=== PATIENT | female | born 1970 | race Caucasian/White ===

== ENCOUNTER 2016-10-09 08:05 | Emergency (ER) | payer MEDICAID ==
[2016-10-09] MEDS ORDERED: ONDANSETRON HCL INJ/PF 4 MG/2 ML SDV IV ONE ×3 (09:44→13:20)
--- NOTE | 2016-10-09 09:44 | ER Document Report ---
ED General - General Chief Complaint: Nausea/Vomiting Stated Complaint: VOMITING Mode of Arrival: Ambulatory Notes: Patient presents to the emergency department with complaints of vomiting for week can't keep water down pain in abdomen. Patient gives history of nausea for the past 6 months. She reports she's lost over 80 pounds in one year. Patient also reports she recently had a hysterectomy on August 31. Patient has been evaluated by her FRONT DESK ADMIN twice since that time. She reports she still having a little brown vaginal discharge. Patient reports she's had left lower quadrant abdominal pain on and off for months. She reports history of diverticulitis. Patient reports that she is constantly fighting nausea and vomiting. She is able to keep water down without problems so. For the past week she's been vomiting water up. She reports she tried to eat some toast yesterday was able to keep down but when she drinks a beer after reports she threw it all up. Patient is a diabetic. She reports she hasn't been taking her insulin because she hasn't been able to keep fluids down. She last took 18 units of NovoLog yesterday. TRAVEL OUTSIDE OF THE [place] IN LAST 30 DAYS: No - HPI Onset: Other Onset/Duration: Constant, Persistent Quality of pain: Achy Severity: Severe Pain Level: 4 Associated symptoms: Nausea, Vomiting Exacerbated by: Denies Relieved by: Denies Similar symptoms previously: Yes Recently seen / treated by doctor: Yes - Related Data Allergies/Adverse Reactions: Sulfa (Sulfonamide Antibiotics) Allergy (Intermediate, Verified 11/10/15 10:55) Anaphylaxis mushrooms Allergy (Mild, Uncoded 11/10/15 10:55) Hives Past Medical History - General Information source: Patient Last Menstrual Period: hysterectomy - Social History Smoking Status: Current Every Day Smoker Cigarette use (# per day): Yes Frequency of alcohol use: Rare Drug Abuse: None Lives with: Family Family History: Reviewed & Not Pertinent, DM Patient has suicidal ideation: No Patient has homicidal ideation: No - Past Medical History Cardiac Medical History: Reports: Hx Hypercholesterolemia, Hx Hypertension Pulmonary Medical History: Reports: Hx Bronchitis, Hx Pneumonia Endocrine Medical History: Reports: Hx Diabetes Mellitus Type 2 Renal/ Medical History: Reports: Hx Ectopic , Hx Ovarian Cysts. Denies: Hx Peritoneal Dialysis GI Medical History: Reports: Hx Gastritis, Hx Irritable Bowel Past Surgical History: Reports: Hx Adenoidectomy, Hx Myringotomy, Hx Tonsillectomy, Hx Tubal Ligation - Immunizations Immunizations up to date: Yes Hx Diphtheria, Pertussis, Tetanus Vaccination: Yes Hx Pneumococcal Vaccination: 09/18/00 Review of Systems - Review of Systems Notes: Review HPI for review of systems., All other systems negative Physical Exam - Vital signs Vitals: Temp Pulse Resp BP Pulse Ox 97.7 F 128 H 18 114/86 H 99 10/09/16 08:10 10/09/16 08:10 10/09/16 08:10 10/09/16 08:10 10/09/16 08:10 - Notes Notes: PHYSICAL EXAMINATION: GENERAL: Well-appearing and in no acute distress laughs easily HEAD: Atraumatic, normocephalic. EYES: Pupils equal round extraocular movements intact, sclera anicteric, conjunctiva are normal. ENT: nares patent, oropharynx clear without exudates. Moist mucous membranes. NECK: Normal range of motion, supple without lymphadenopathy LUNGS: CTAB and equal. No wheezes rales or rhonchi. HEART: Regular rate and rhythm without murmurs ABDOMEN: Soft, LLQ tenderness. No guarding, no rebound BACK: Denies pain EXTREMITIES: Normal range of motion, no pitting edema. NEUROLOGICAL: Cranial nerves grossly intact. Normal sensory/motor PSYCH: Normal mood, normal affect. SKIN: Warm, Dry, normal turgor, no rashes or lesions noted Course - Re-evaluation Re-evalutation: 10/09/16 11:30 I have consulted the attending provider, Dr Reid, per [facility] guidelines, advised 2 view abdomen 10/09/16 14:23 Patient eating crackers drinking by mouth fluids reports abdominal pain gone. Discussed UTI with patient. Patient reports she's on Cipro and started taking it 2 days ago ordered by her FRONT DESK ADMIN because she was having symptoms at that time. pt reports she will take her insulin when she arrives home as scheduled - Vital Signs Vital signs: Temp Pulse Resp BP Pulse Ox 97.6 F 122 H 16 110/80 98 10/09/16 16:05 10/09/16 16:05 10/09/16 16:05 10/09/16 16:05 10/09/16 16:05 - Laboratory Result Diagrams: 10/09/16 09:23 10/09/16 09:23 Laboratory results interpreted by me: 10/09/16 10/09/16 10/09/16 09:23 09:23 09:55 WBC 12.7 H RBC 5.30 H Hct 48.5 H MCHC 31.5 L Absolute Neutrophils 9.6 H Chloride 94 L Anion Gap 20 H Creatinine 0.48 L Glucose 403 H* POC Glucose Calcium 10.6 H Urine Glucose (UA) >=500 H Urine Ketones 80 H Urine Blood MODERATE H Ur Leukocyte Esterase LARGE H 10/09/16 10/09/16 10/09/16 12:00 13:10 15:31 WBC RBC Hct MCHC Absolute Neutrophils Chloride Anion Gap Creatinine Glucose POC Glucose 324 H 341 H 292 H Calcium Urine Glucose (UA) Urine Ketones Urine Blood Ur Leukocyte Esterase - Diagnostic Test Radiology reviewed: Image reviewed, Reports reviewed - IMPRESSION: NO RADIOGRAPHIC EVIDENCE FOR ACUTE ABDOMINAL DISEASE. Discharge - Discharge Clinical Impression: Abdominal pain, Hyperglycemia Nausea and vomiting Qualifiers: Vomiting type: unspecified Vomiting Intractability: non-intractable Qualified Code(s): R11.2 - Nausea with vomiting, unspecified Urinary tract infection Qualifiers: Urinary tract infection type: site unspecified Hematuria presence: with hematuria Qualified Code(s): N39.0 - Urinary tract infection, site not specified Condition: Stable Disposition: HOME, SELF-CARE Instructions: Abdominal Pain ([facility]), Urinary Tract Infection ([facility]), Vomiting ( [facility]), Antinausea Medication ([facility]), Ciprofloxacin ([facility]) Additional Instructions: *You have been evaluated for abdominal pain, nausea/vomiting, UTI *Monitor your blood pressure. Your blood pressure was elevated today. This may be because you were anxious, in pain or because you need medication. It is important to follow up with your primary care provider for full evaluation. *Take medication as prescribed- continue to take your cipro *Ensure adequate fluid intake as discussed to prevent dehydration *Follow up with a primary care provider within 5 days for recheck *Return to ED for worsening condition, changes, needs Forms: Elevated Blood Pressure Referrals: BONNY LEARY PA-C [Primary Care Provider] - Follow up as needed
[2016-10-09 10:02] LABS: ABSOLUTE BASOPHILS # (AUTO) 0.1 10^3/uL (0.0-0.2); ABSOLUTE EOSINOPHILS # (AUTO) 0.1 10^3/uL (0.0-0.6); ABSOLUTE LYMPHOCYTES (AUTO) 2.2 10^3/uL (0.5-4.7); ABSOLUTE MONOCYTES (AUTO) 0.7 10^3/uL (0.1-1.4); ABSOLUTE NEUT (AUTO) 9.6 10^3/uL (1.7-8.2); BASOPHILS % (AUTO) 0.8 % (0-2); EOSINOPHILS % (AUTO) 0.8 % (0-6); HEMATOCRIT 48.5 % (36.0-47.0); HEMOGLOBIN 15.3 g/dL (12.0-15.5); HGB HCT DIFFERENCE -2.6; LYMPHOCYTES % (AUTO) 17.5 % (13-45); MEAN CORPUSCULAR HEMOGLOBIN 28.9 pg (27.0-33.4); MEAN CORPUSCULAR HGB CONC 31.5 g/dL (32.0-36.0); MEAN CORPUSCULAR VOLUME 92 fl (80-97); MONOCYTES % (AUTO) 5.6 % (3-13); RED CELL DISTRIBUTION WIDTH 13.8 % (11.5-14.0); SEGMENTED NEUTROPHILS % (AUTO) 75.3 % (42-78); WHITE BLOOD COUNT 12.7 10^3/uL (4.0-10.5)
[2016-10-09 10:07] LABS: ALANINE AMINOTRANSFERASE 13 U/L (9-52); ALBUMIN 4.4 g/dL (3.5-5.0); ALKALINE PHOSPHATASE 93 U/L (38-126); ASPARTATE AMINO TRANSFERASE 14 U/L (14-36); BILIRUBIN,TOTAL 0.8 mg/dL (0.2-1.3); BLOOD UREA NITROGEN 15 mg/dL (7-20); CALCIUM 10.6 mg/dL (8.4-10.2); CREATININE RESULT 0.48 mg/dL (0.52-1.25); LIPASE 42.5 U/L (23-300); POTASSIUM 4.9 mmol/L (3.6-5.0); TOTAL PROTEIN 7.9 g/dL (6.3-8.2)
[2016-10-09 10:15] LABS: CARBON DIOXIDE 25 mmol/L (22-30); CHLORIDE 94 mmol/L (98-107); SODIUM 138.7 mmol/L (137-145)
[2016-10-09 10:20] LABS: ANION GAP 20 (5-19); GLUCOSE 403 mg/dL (75-110)
[2016-10-09 10:31] LABS: APPEARANCE,URINE SLIGHTLY-CLOUDY; BILIRUBIN,URINE NEGATIVE (NEGATIVE); GLUCOSE, URINE >=500 mg/dL (NEGATIVE); KETONES,URINE 80 mg/dL (NEGATIVE); LEUKOCYTE ESTERASE,URINE LARGE (NEGATIVE); NITRITE,URINE NEGATIVE (NEGATIVE); PROTEIN,URINE NEGATIVE (NEGATIVE); URINE SPECIFIC GRAVITY 1.031; UROBILINOGEN,URINE NEGATIVE mg/dL (<2.0)
[2016-10-09] MEDS ORDERED: NORMAL SALINE 1000 ML 1,000 ML IV ONE ×2 (10:35→11:42)
[2016-10-09] MEDS ORDERED: OXYCODONE-ACETAMINOPHEN 5-325 MG TABLET PO ONE (13:20)
[2016-10-09] MEDS ORDERED: INSULIN REG, HUMAN 100 UNIT/ML 3 ML VIAL (PYX) SUBCUT ONE (14:22)
[2016-10-09] MEDS ORDERED: METOCLOPRAMIDE HCL INJ/PF 10 MG/2 ML SDV IV ONE (15:02)
[2016-10-09] MEDS ORDERED: ONDANSETRON ODT 4 MG TAB (6 TAB/DSPK) PO PRN (15:41)
[2016-10-09] MEDS ORDERED: HYDROCODONE/ACETAMINOPHEN 5-325 MG 6 TAB/DSPK PO PRN (15:41)
[2016-10-09 16:12] VITALS: BP 110/80
== END 2016-10-09 16:05 | disposition home or self-care (01) ==
LOC: ER 08:05
DX: N39.0 Urinary tract infection, site not specified (principal); R31.9 Hematuria, unspecified; R11.2 Nausea with vomiting, unspecified; R10.32 Left lower quadrant pain; E11.65 Type 2 diabetes mellitus with hyperglycemia; Z91.14 Patient's other noncompliance with medication regimen; I10 Essential (primary) hypertension; R63.4 Abnormal weight loss; Z68.23 Body mass index [BMI] 23.0-23.9, adult; F17.210 Nicotine dependence, cigarettes, uncomplicated; Z98.890 Other specified postprocedural states; Z90.710 Acquired absence of both cervix and uterus; Z87.19 Personal history of other diseases of the digestive system; Z87.892 Personal history of anaphylaxis; Z88.2 Allergy status to sulfonamides; Z91.018 Allergy to other foods; Z87.42 Personal history of other diseases of the female genital tract; Z87.59 Personal history of other complications of pregnancy, childbirth and the puerperium
CPT/HCPCS: 96376; 99284; 96361; 96374; 96375; 36415; 87086; 82962; 83690; 84703; 85025; 87088; 80053; 81001; 74020; J2765; J1815; J2405; J7030; 87186

== ENCOUNTER 2016-10-10 23:41 | Emergency (ER) | payer MEDICAID ==
[2016-10-11] MEDS ORDERED: NORMAL SALINE 1000 ML 1,000 ML IV ONE ×2 (02:58)
--- NOTE | 2016-10-11 03:01 | ER Document Report ---
ED GI/ - General Chief Complaint: Vomiting Stated Complaint: POSSIBLE ALLERGIC REACTION Time seen by provider: 02:55 Notes: Patient is a 45-year-old female that comes emergency department for chief complaint of vomiting. Patient states that she took estrogen pill this morning and a few hours later began uncontrolled vomiting. She states that she did the same yesterday but was hoping that it was not the pill because she has had difficulty with vomiting for 6 months now. She has a gastroenterology follow- up pending. Patient was placed on estrogen starting Monday by JEWELRY RACKER status post hysterectomy. Patient has insulin-dependent diabetes, she did take insulin this morning when she ate crackers. TRAVEL OUTSIDE OF THE [place] IN LAST 30 DAYS: No - Related Data Allergies/Adverse Reactions: Sulfa (Sulfonamide Antibiotics) Allergy (Intermediate, Verified 11/10/15 10:55) Anaphylaxis mushrooms Allergy (Mild, Uncoded 11/10/15 10:55) Hives Past Medical History - General Information source: Patient - Social History Smoking Status: Never Smoker Frequency of alcohol use: None Drug Abuse: None Lives with: Family Family History: Reviewed & Not Pertinent, DM Patient has suicidal ideation: No Patient has homicidal ideation: No - Past Medical History Cardiac Medical History: Reports: Hx Hypercholesterolemia, Hx Hypertension Pulmonary Medical History: Reports: Hx Bronchitis, Hx Pneumonia Endocrine Medical History: Reports: Hx Diabetes Mellitus Type 2 Renal/ Medical History: Reports: Hx Ectopic , Hx Ovarian Cysts. Denies: Hx Peritoneal Dialysis GI Medical History: Reports: Hx Gastritis, Hx Irritable Bowel Past Surgical History: Reports: Hx Adenoidectomy, Hx Hysterectomy, Hx Myringotomy, Hx Tonsillectomy, Hx Tubal Ligation - Immunizations Immunizations up to date: Yes Hx Diphtheria, Pertussis, Tetanus Vaccination: Yes Hx Pneumococcal Vaccination: 09/18/00 Review of Systems - Review of Systems Constitutional: No symptoms reported EENT: No symptoms reported Cardiovascular: No symptoms reported Respiratory: No symptoms reported Gastrointestinal: See HPI Genitourinary: No symptoms reported Female Genitourinary: No symptoms reported Musculoskeletal: No symptoms reported Skin: No symptoms reported Hematologic/Lymphatic: No symptoms reported Neurological/Psychological: No symptoms reported Physical Exam - Vital signs Vitals: Temp Pulse Resp BP Pulse Ox 97.8 F 118 H 20 119/82 98 10/10/16 23:43 10/10/16 23:43 10/10/16 23:43 10/10/16 23:43 10/10/16 23:43 Interpretation: Normal - General General appearance: Appears well, Alert - HEENT Head: Normocephalic, Atraumatic Eyes: Normal Conjunctiva: Normal Extraocular movements intact: Yes Eyelashes: Normal Pupils: PERRL Sinus: Normal Nasal: Normal Mouth/Lips: Normal Mucous membranes: Normal Pharynx: Normal Neck: Normal - Respiratory Respiratory status: No respiratory distress Chest status: Nontender Breath sounds: Normal Chest palpation: Normal - Cardiovascular Rhythm: Regular, Tachycardia Heart sounds: Normal auscultation, S1 appreciated, S2 appreciated Murmur: No - Abdominal Inspection: Normal Distension: No distension Bowel sounds: Normal Tenderness: Tender - Very mild generalized tenderness of the abdomen, nonspecific with no guarding. No: Guarding - Back Back: Normal, Nontender. No: Tender - Extremities General upper extremity: Normal inspection, Nontender, Normal color, Normal ROM , Normal temperature General lower extremity: Normal inspection, Nontender, Normal color, Normal ROM , Normal temperature, Normal weight bearing. No: Patricia's sign - Neurological Neuro grossly intact: Yes Cognition: Normal Orientation: AAOx4 Kathryn Coma Scale Eye Opening: Spontaneous Kathryn Coma Scale Verbal: Oriented Kathryn Coma Scale Motor: Obeys Commands Kathryn Coma Scale Total: 15 Speech: Normal Motor strength normal: LUE, RUE, LLE, RLE Sensory: Normal - Psychological Associated symptoms: Normal affect, Normal mood - Skin Skin Temperature: Warm Skin Moisture: Dry Skin Color: Normal Course - Re-evaluation Re-evalutation: Patient still mildly tachycardic after 2 L boluses, patient was given IV nausea medications and states she feels much better, tolerating fluids, patient states that her heart rate is always somewhat elevated (states it is usually in the 120s, this is consistent with a visit from yesterday). Patient is well- appearing. Glucose elevated to 60s, anion gap and bicarbonate are normal, large amount of ketones in the urine but this is consistent with patient's dehydration. Patient requesting to go home after medications. Advised to stop the estrogen until she follows up with JEWELRY RACKER and to return for any concerning or worsening symptoms. Patient and family members state satisfaction and agreement. = - Vital Signs Vital signs: Temp Pulse Resp BP Pulse Ox 98.4 F 112 H 18 140/82 H 99 01/24/17 05:33 10/11/16 05:33 10/11/16 05:33 10/11/16 05:33 10/11/16 05:33 - Laboratory Result Diagrams: 10/11/16 03:53 Laboratory results interpreted by me: 10/11/16 10/11/16 03:10 03:53 Potassium 3.5 L Creatinine 0.43 L Glucose 267 H Urine Glucose (UA) >=500 H Urine Ketones 80 H Urine Blood SMALL H Ur Leukocyte Esterase TRACE H Discharge - Discharge Clinical Impression: Nausea and vomiting, Medication side effects, Dehydration Condition: Stable Disposition: HOME, SELF-CARE Additional Instructions: Do not take the estrogen because it appears you cannot tolerate this. Follow up with JEWELRY RACKER for additional management. Take the Reglan if needed for nausea, I recommend taking diphenhydramine with this. Continue to rehydrate at home. Return to the emergency department for any concerning or worsening symptoms. Prescriptions: Metoclopramide HCl [Reglan] 5 mg PO ASDIR PRN #30 tablet PRN Reason: Referrals: BONNY LEARY PA-C [Primary Care Provider] - Follow up as needed
[2016-10-11] MEDS ORDERED: METOCLOPRAMIDE HCL INJ/PF 10 MG/2 ML SDV IV ONE ×2 (03:29→04:50)
[2016-10-11] MEDS ORDERED: DIPHENHYDRAMINE HCL 50 MG/ML VIAL IV ONE ×2 (03:30→04:50)
[2016-10-11 03:34] LABS: APPEARANCE,URINE CLEAR; BILIRUBIN,URINE NEGATIVE (NEGATIVE); GLUCOSE, URINE >=500 mg/dL (NEGATIVE); KETONES,URINE 80 mg/dL (NEGATIVE); LEUKOCYTE ESTERASE,URINE TRACE (NEGATIVE); NITRITE,URINE NEGATIVE (NEGATIVE); PROTEIN,URINE NEGATIVE (NEGATIVE); URINE SPECIFIC GRAVITY 1.022; UROBILINOGEN,URINE NEGATIVE mg/dL (<2.0)
[2016-10-11 04:36] LABS: ALANINE AMINOTRANSFERASE 23 U/L (9-52); ALBUMIN 3.5 g/dL (3.5-5.0); ALKALINE PHOSPHATASE 71 U/L (38-126); ANION GAP 15 (5-19); ASPARTATE AMINO TRANSFERASE 14 U/L (14-36); BILIRUBIN,TOTAL 0.7 mg/dL (0.2-1.3); BLOOD UREA NITROGEN 10 mg/dL (7-20); CALCIUM 8.9 mg/dL (8.4-10.2); CARBON DIOXIDE 22 mmol/L (22-30); CHLORIDE 100 mmol/L (98-107); CREATININE RESULT 0.43 mg/dL (0.52-1.25); GLUCOSE 267 mg/dL (75-110); POTASSIUM 3.5 mmol/L (3.6-5.0); TOTAL PROTEIN 6.5 g/dL (6.3-8.2)
[2016-10-11 05:39] VITALS: BP 140/82
== END 2016-10-11 05:44 | disposition home or self-care (01) ==
LOC: ER 23:41
DX: R11.2 Nausea with vomiting, unspecified (principal); T38.5X5A Adverse effect of other estrogens and progestogens, initial encounter; E86.0 Dehydration; E78.00 Pure hypercholesterolemia, unspecified; I10 Essential (primary) hypertension; E11.9 Type 2 diabetes mellitus without complications; Z90.710 Acquired absence of both cervix and uterus; Z88.2 Allergy status to sulfonamides
CPT/HCPCS: 96376; 99284; 96361; 96374; 96375; 36415; 80053; 81001; J1200; J2765; J7030

== ENCOUNTER 2016-10-20 11:57 | Day surgery (SDC) | payer MEDICAID ==
[~2016-10-20 11:57] MED LIST: DIPHENHYDRAMINE HCL 50 MG/ML VIAL ONE; EPINEPHRINE INJ 1 MG/10 ML DISP.SYRIN ONE; FLUMAZENIL INJ 0.5 MG/5 ML VIAL IV ONE; GLUCAGON,HUMAN RECOMB 1 MG INJ ONE; MIDAZOLAM 2 MG/2 ML INJ ONE; NALOXONE HCL INJ/PF 0.4 MG/1 ML SDV ONE; ONDANSETRON HCL INJ/PF 4 MG/2 ML SDV ONE; PROMETHAZINE HCL INJ 25 MG/1 ML VIAL ONE
[2016-10-20] MEDS: MIDAZOLAM 2 MG/2 ML INJ ONE ×2 (12:45→12:49)
[2016-10-20] MEDS: FENTANYL CITRATE INJ/PF 100 MCG/2 ML AMPUL ONE ×2 (12:47→12:51)
--- NOTE | 2016-10-20 12:56 | Operative Report ---
Operative Report DATE OF SURGERY: 10/20/16 Operative Report: The risks benefits and alternatives of the procedure explained to the patient in detail and informed consent is obtained that GIF Olympus video scope was inserted into the patient's mouth and hypopharynx the esophagus is identified intubated and insufflated the scope was then advanced through the esophagus stomach and duodenum retroflexion maneuver is done the esophagus stomach and first and second portions of the duodenum examined PREOPERATIVE DIAGNOSIS: Epigastric pain POSTOPERATIVE DIAGNOSIS: Gastritis, duodenitis OPERATION: EGD with biopsy SURGEON: SERAFIN MORGAN ANESTHESIA: Moderate Sedation - 4 mg of Versed, 100 g of fentanyl. TISSUE REMOVED OR ALTERED: Gastritis specimens obtained rule out Helicobacter pylori COMPLICATIONS: None. ESTIMATED BLOOD LOSS: none. INTRAOPERATIVE FINDINGS: Gastritis and duodenitis, esophagus is normal PROCEDURE: Patient tolerated the procedure well. No immediate postprocedure complications are noted. Patient is discharged in good condition. Discharge date 11-04. Discharge diet: Regular. Discharge activity: Regular. 2-3 follow-up to discuss findings. We'll await on pathology results Patient is instructed to call the office or proceed to the emergency room after any further problems or questions
[2016-10-20 14:10] VITALS: BP 128/83
== END 2016-10-20 14:05 | disposition home or self-care (01) ==
LOC: END 11:57
PROVIDERS: ATTEND Internal Medicine Gastroenterology
PROC: 0DB68ZX Excision of Stomach, Via Natural or Artificial Opening Endoscopic, Diagnostic (ICD-10-PCS; principal; 2016-10-20 12:30)
DX: K29.80 Duodenitis without bleeding (principal); K29.50 Unspecified chronic gastritis without bleeding; E11.9 Type 2 diabetes mellitus without complications; E78.5 Hyperlipidemia, unspecified; I10 Essential (primary) hypertension; Z79.4 Long term (current) use of insulin; Z79.899 Other long term (current) drug therapy; Z88.2 Allergy status to sulfonamides; Z88.8 Allergy status to other drugs, medicaments and biological substances
CPT/HCPCS: 43239; 82962; 88305 ×2; J2250; J3010; J0171; J1200; J1610; J2310; J2405; J2550; J3490

== ENCOUNTER → 2016-10-21 | Outpatient (CLI) | payer MEDICAID | LOC: RAD 10:45 | PROVIDERS: ATTEND Physician Assistant | DX: R10.12 Left upper quadrant pain (principal) | CPT/HCPCS: 76700; 93976 ==

== ENCOUNTER 2016-10-24 22:13 | Emergency (ER) | payer MEDICAID ==
--- NOTE | 2016-10-24 22:19 | ER Document Report ---
ED GI/ - General Mode of Arrival: Medic Information source: Patient TRAVEL OUTSIDE OF THE [place] IN LAST 30 DAYS: No - HPI Patient complains to provider of: Abdominal pain Onset: This morning Timing/Duration: Sudden, Persistent Quality of pain: Stabbing Severity at maximum: Severe Severity in ED: Severe Associated symptoms: Nausea, Vomiting. denies: Diarrhea Similar symptoms previously: Yes Recently seen / treated by doctor: Yes - [facility] ED 10/20/2016 <GARIMA MCKEON - Last Filed: 10/25/16 00:35> <STACI ORELLANA - Last Filed: 10/25/16 05:23> - General Chief Complaint: Vomiting Stated Complaint: NAUSEA, VOMITING Notes: 45 y/o female presents to the emergency department chief complaint diffuse abdominal pain onset this morning, but has been intermittent over the past few months. Patient states that she has been nauseous and vomiting, but denies diarrhea. Patient describes the pain as a stabbing pain. Patient denies any exposure to anyone with illness. Patient recently was seen here for similar symptoms. She had an endoscopy revealing gastritis and duodenitis on 10/20/2016, and on 10/21/2016 patient had a negative abdominal ultrasound. (GARIMA MCKEON) - Related Data Allergies/Adverse Reactions: Sulfa (Sulfonamide Antibiotics) Allergy (Intermediate, Verified 10/20/16 12:21) Anaphylaxis mushrooms Allergy (Mild, Uncoded 10/20/16 12:21) Hives Past Medical History - General Information source: Patient, [facility] Records - Social History Smoking Status: Current Every Day Smoker Chew tobacco use (# tins/day): Yes Frequency of alcohol use: None Family History: Reviewed & Not Pertinent, DM - Past Medical History Cardiac Medical History: Reports: Hx Hypercholesterolemia, Hx Hypertension Denies: Hx Coronary Artery Disease, Hx Heart Attack Pulmonary Medical History: Reports: Hx Bronchitis, Hx Pneumonia Denies: Hx Asthma, Hx COPD Neurological Medical History: Denies: Hx Cerebrovascular Accident, Hx Seizures Endocrine Medical History: Reports: Hx Diabetes Mellitus Type 2 Renal/ Medical History: Reports: Hx Ectopic , Hx Ovarian Cysts. Denies: Hx Peritoneal Dialysis GI Medical History: Reports: Hx Gastritis, Hx Irritable Bowel, Other - Duodenitis Musculoskeltal Medical History: Denies Hx Arthritis Past Surgical History: Reports: Hx Adenoidectomy, Hx Hysterectomy, Hx Myringotomy, Hx Tonsillectomy, Hx Tubal Ligation - Immunizations Immunizations up to date: Yes Hx Diphtheria, Pertussis, Tetanus Vaccination: Yes Hx Pneumococcal Vaccination: 09/18/00 <GARIMA MCKEON - Last Filed: 10/25/16 00:35> Review of Systems - Review of Systems Constitutional: No symptoms reported EENT: No symptoms reported Cardiovascular: No symptoms reported Respiratory: No symptoms reported Gastrointestinal: See HPI, Abdominal pain, Nausea, Vomiting. denies: Diarrhea Genitourinary: No symptoms reported Female Genitourinary: No symptoms reported Musculoskeletal: No symptoms reported Skin: No symptoms reported Hematologic/Lymphatic: No symptoms reported Neurological/Psychological: No symptoms reported -: Yes All other systems reviewed and negative <GARIMA MCKEON - Last Filed: 10/25/16 00:35> Physical Exam - Vital signs Interpretation: Hypertensive, Tachycardic - General General appearance: Other - Appears uncomfortable. - HEENT Head: Normocephalic, Atraumatic Eyes: Normal Pupils: PERRL - Abdominal Tenderness: Tender - Abdomen diffusely tender to palpation, LUQ worse. - Back Back: Normal, Nontender - Extremities General upper extremity: Normal inspection, Nontender, Normal color, Normal ROM General lower extremity: Normal inspection, Nontender, Normal color, Normal ROM , Normal temperature - Neurological Neuro grossly intact: Yes Cognition: Normal Kathryn Coma Scale Eye Opening: Spontaneous Kathryn Coma Scale Verbal: Oriented Kathryn Coma Scale Motor: Obeys Commands Kathryn Coma Scale Total: 15 Speech: Normal - Psychological Associated symptoms: Normal affect, Normal mood - Skin Skin Temperature: Warm Skin Moisture: Diaphoretic Skin Color: Normal <GARIMA MCKEON - Last Filed: 10/25/16 00:35> <STACI ORELLANA - Last Filed: 10/25/16 05:23> - Vital signs Vitals: Temp Pulse BP Pulse Ox 98.3 F 97 196/89 H 97 10/24/16 23:42 10/24/16 23:42 10/24/16 23:42 10/24/16 23:42 (STACI ORELLANA) Course - Laboratory Result Diagrams: 10/24/16 23:20 10/24/16 23:20 <GARIMA MCKEON - Last Filed: 10/25/16 00:35> - Laboratory Result Diagrams: 10/24/16 23:20 10/24/16 23:20 <STACI ORELLANA - Last Filed: 10/25/16 05:23> - Re-evaluation Re-evalutation: 10/25/16 02:11 Patient with no acute findings on blood work. CT showing chronic pancreatitis. Patient is feeling better after fluids and medications. Patient is unsure she has a history of pancreatitis. She will try by mouth. She has been instructed about following a clear liquid diet. 10/25/16 05:22 Patient is able to tolerate by mouth fluids. She'll be discharged home to follow-up with her it lead. Understands agrees with plan. Stable for discharge. Return if any worsening or concerning symptoms. (STACI ORELLANA) - Vital Signs Vital signs: Temp Pulse Resp BP Pulse Ox 98.3 F 97 196/89 H 97 10/24/16 23:42 10/24/16 23:42 10/24/16 23:42 10/24/16 23:42 (STACI ORELLANA) - Laboratory Laboratory results interpreted by me: 10/24/16 10/24/16 10/25/16 23:20 23:20 01:37 WBC 13.5 H Seg Neutrophils % 82.1 H Absolute Neutrophils 11.1 H Carbon Dioxide 20 L BUN 6 L Creatinine 0.37 L Glucose 298 H Urine Glucose (UA) >=500 H Urine Ketones 20 H Urine Blood MODERATE H Ur Leukocyte Esterase SMALL H (STACI ORELLANA) Discharge <GARIMA MCKEON - Last Filed: 10/25/16 00:35> <STACI ORELLANA - Last Filed: 10/25/16 05:23> - Discharge Clinical Impression: Pancreatitis Qualifiers: Chronicity: chronic Pancreatitis type: other Qualified Code(s): K86.1 - Other chronic pancreatitis Condition: Stable Disposition: HOME, SELF-CARE Instructions: Pancreatitis ([facility]), Clear Liquid Diet ([facility]) Additional Instructions: Please follow-up with your GI doctor. Return if you have any worsening or concerning symptoms. Prescriptions: Metoclopramide HCl [Reglan 10 mg Tablet] 1 - 2 tab PO ASDIR PRN #25 tablet PRN Reason: Ondansetron [Zofran Odt 4 mg Tablet] 1 - 2 tab PO Q4H PRN #20 tab.rapdis PRN Reason: For Nausea/Vomiting Oxycodone HCl/Acetaminophen [Percocet 5-325 mg Tablet] 1 - 2 tab PO Q4H PRN #30 tablet PRN Reason: Forms: Return to Work Referrals: SOHA WATKINS MD [Primary Care Provider] - Follow up as needed Scribe Attestation: 10/25/16 05:23 I personally performed the services described in the documentation, reviewed and edited the documentation which was dictated to the scribe in my presence, and it accurately records my words and actions. (STACI ORELLANA) Scribe Documentation - Scribe Written by Scribe:: Garima Mckeon 10/24/2016 [id number] acting as scribe for :: Zenia <GARIMA MCKEON - Last Filed: 10/25/16 00:35>
[2016-10-24] MEDS ORDERED: METOCLOPRAMIDE HCL INJ/PF 10 MG/2 ML SDV IV ONE (22:27)
[2016-10-24] MEDS ORDERED: MORPHINE SULFATE 10 MG/ML INJ IV ONE (22:27)
[2016-10-24] MEDS ORDERED: PANTOPRAZOLE SODIUM 40 MG VIAL IV ONE (22:27)
[2016-10-24] MEDS ORDERED: NORMAL SALINE 1000 ML 1,000 ML IV ONE (22:54)
[2016-10-24 23:34] LABS: ABSOLUTE BASOPHILS # (AUTO) 0.1 10^3/uL (0.0-0.2); ABSOLUTE EOSINOPHILS # (AUTO) 0.1 10^3/uL (0.0-0.6); ABSOLUTE LYMPHOCYTES (AUTO) 1.8 10^3/uL (0.5-4.7); ABSOLUTE MONOCYTES (AUTO) 0.5 10^3/uL (0.1-1.4); ABSOLUTE NEUT (AUTO) 11.1 10^3/uL (1.7-8.2); BASOPHILS % (AUTO) 0.8 % (0-2); EOSINOPHILS % (AUTO) 0.4 % (0-6); HEMATOCRIT 46.5 % (36.0-47.0); HEMOGLOBIN 15.3 g/dL (12.0-15.5); HGB HCT DIFFERENCE -0.6; LYMPHOCYTES % (AUTO) 13.2 % (13-45); MEAN CORPUSCULAR HEMOGLOBIN 29.3 pg (27.0-33.4); MEAN CORPUSCULAR HGB CONC 32.9 g/dL (32.0-36.0); MEAN CORPUSCULAR VOLUME 89 fl (80-97); MONOCYTES % (AUTO) 3.5 % (3-13); RED BLOOD COUNT 5.22 10^6/uL (3.72-5.28); RED CELL DISTRIBUTION WIDTH 13.7 % (11.5-14.0); SEGMENTED NEUTROPHILS % (AUTO) 82.1 % (42-78); WHITE BLOOD COUNT 13.5 10^3/uL (4.0-10.5)
[2016-10-24] MEDS ORDERED: RINGERS SOLUTION,LACTATED 1,000 ML IV ONE (23:48)
[2016-10-25 00:01] LABS: ALANINE AMINOTRANSFERASE 24 U/L (9-52); ALBUMIN 4.4 g/dL (3.5-5.0); ALKALINE PHOSPHATASE 89 U/L (38-126); ANION GAP 18 (5-19); ASPARTATE AMINO TRANSFERASE 17 U/L (14-36); BILIRUBIN,TOTAL 0.6 mg/dL (0.2-1.3); BLOOD UREA NITROGEN 6 mg/dL (7-20); CALCIUM 9.7 mg/dL (8.4-10.2); CARBON DIOXIDE 20 mmol/L (22-30); CHLORIDE 100 mmol/L (98-107); CREATININE RESULT 0.37 mg/dL (0.52-1.25); GLUCOSE 298 mg/dL (75-110); LIPASE 50.6 U/L (23-300); POTASSIUM 4.5 mmol/L (3.6-5.0); SODIUM 138.3 mmol/L (137-145); TOTAL PROTEIN 7.5 g/dL (6.3-8.2)
[2016-10-25 00:17] VITALS: BP 196/89
[2016-10-25] MEDS ORDERED: MORPHINE SULFATE 10 MG/ML INJ IV ONE (01:25)
[2016-10-25 02:11] LABS: APPEARANCE,URINE CLEAR; BILIRUBIN,URINE NEGATIVE (NEGATIVE); GLUCOSE, URINE >=500 mg/dL (NEGATIVE); KETONES,URINE 20 mg/dL (NEGATIVE); LEUKOCYTE ESTERASE,URINE SMALL (NEGATIVE); NITRITE,URINE NEGATIVE (NEGATIVE); PROTEIN,URINE NEGATIVE (NEGATIVE); URINE SPECIFIC GRAVITY 1.021; UROBILINOGEN,URINE NEGATIVE mg/dL (<2.0)
[2016-10-25] MEDS ORDERED: HYDROCODONE/ACETAMINOPHEN 5-325 MG 6 TAB/DSPK PO PRN (04:19)
[2016-10-25] MEDS ORDERED: ONDANSETRON ODT 4 MG TAB (6 TAB/DSPK) PO PRN (04:20)
== END 2016-10-25 05:13 | disposition home or self-care (01) ==
LOC: ER 22:13
DX: K86.1 Other chronic pancreatitis (principal); R11.2 Nausea with vomiting, unspecified; R10.84 Generalized abdominal pain; R00.0 Tachycardia, unspecified; R61 Generalized hyperhidrosis; I10 Essential (primary) hypertension; E11.9 Type 2 diabetes mellitus without complications; Z98.890 Other specified postprocedural states; Z91.018 Allergy to other foods; Z88.2 Allergy status to sulfonamides; Z87.892 Personal history of anaphylaxis; Z87.59 Personal history of other complications of pregnancy, childbirth and the puerperium; Z87.42 Personal history of other diseases of the female genital tract; Z90.710 Acquired absence of both cervix and uterus; Z98.51 Tubal ligation status
CPT/HCPCS: 36415; 83690; 85025; 80053; 81001; 84484; 74177; J2765; J2270 ×2; S0164; J7030; J7120

== ENCOUNTER → 2017-06-30 | Outpatient (CLI) | payer MEDICAID ==
--- NOTE | 2017-06-30 10:56 | RADIOLOGY REPORT (SQ) ---
EXAM DESCRIPTION: FOOT LEFT COMPLETE COMPLETED DATE/TIME: 06/30/2017 10:27 am REASON FOR STUDY: PAIN IN LEFT FOOT, PAIN IN RIGHT FOOT M79.672 PAIN IN LEFT FOOT M79.671 PAIN IN RIGHT FOOT COMPARISON: None. NUMBER OF VIEWS: Three views. TECHNIQUE: AP, lateral and oblique radiographic images acquired of the left foot. LIMITATIONS: None. FINDINGS: MINERALIZATION: Normal. BONES: No acute fracture or dislocation. No worrisome bone lesions. JOINTS: No effusions. SOFT TISSUES: No soft tissue swelling. No foreign body. OTHER: No other significant finding. IMPRESSION: NEGATIVE STUDY OF THE LEFT FOOT. NO RADIOGRAPHIC EVIDENCE OF ACUTE INJURY. TECHNICAL DOCUMENTATION: JOB ID: [id number] [employer]- All Rights Reserved
--- NOTE | 2017-06-30 10:57 | RADIOLOGY REPORT (SQ) ---
EXAM DESCRIPTION: FOOT RIGHT COMPLETE COMPLETED DATE/TIME: 06/30/2017 10:27 am REASON FOR STUDY: PAIN IN LEFT FOOT, PAIN IN RIGHT FOOT M79.672 PAIN IN LEFT FOOT M79.671 PAIN IN RIGHT FOOT COMPARISON: None. NUMBER OF VIEWS: Three views. TECHNIQUE: AP, lateral and oblique radiographic images acquired of the right foot. LIMITATIONS: None. FINDINGS: MINERALIZATION: Normal. BONES: No fracture or dislocation. There is small plantar calcaneal spur. There is mild bony overgr owth in the head of the 1st metatarsal. JOINTS: No effusions. SOFT TISSUES: No soft tissue swelling. No foreign body. OTHER: No other significant finding. IMPRESSION: Mild bunion. Calcaneal spur. TECHNICAL DOCUMENTATION: JOB ID: [id number] [employer]- All Rights Reserved
== END ==
LOC: OD 09:48
PROVIDERS: ATTEND Physician Assistant
DX: M79.672 Pain in left foot (principal); M79.671 Pain in right foot

== ENCOUNTER → 2017-08-01 | Outpatient (CLI) | payer MEDICAID ==
--- NOTE | 2017-08-01 14:31 | WOMENS IMAGING REPORT ---
EXAM DESCRIPTION: BILAT SCREENING MAMMO W/CAD COMPLETED DATE/TIME: 08/01/2017 8:55 am REASON FOR STUDY: SCREENING MAMMO Z12.31 ENCNTR SCREEN MAMMOGRAM FOR MALIGNANT NEOPLASM OF SER[place] COMPARISON: None. TECHNIQUE: Standard craniocaudal and mediolateral oblique views of each breast recorded using digita l acquisition. LIMITATIONS: None. FINDINGS: No masses, calcifications or architectural distortion. No areas of suspicion. Read with the assistance of CAD. .[facility] - R2 Cenova Version 1.3 .[facility] - R2 Cenova Version 1.3 .[facility] - R2 Cenova Version 2.4 .[facility] - R2 Cenova Version 2.4 .[facility] - R2 Handbag Finisher Version 9.2 IMPRESSION: NORMAL MAMMOGRAM. BIRADS 1. BREAST DENSITY: a. The breasts are almost entirely fatty. BIRAD: 1 NEGATIVE RECOMMENDATION: ROUTINE SCREENING COMMENT: The patient has been notified of the results by letter per MQSA requirements. Additional no tification policies are in place for contacting patient with suspicious or incomplete findings. Quality ID #225: The [employer] recommends an annual screening mammogram for women aged 40 years or over. This facility utilizes a reminder system to ensure that all patients receive reminder letters, and/or direct phone calls for appointments. This includes reminders for routine scr eening mammograms, diagnostic mammograms, or other Breast Imaging Interventions when appropriate. Th is patient will be placed in the appropriate reminder system. The [employer] (ACR) has developed recommendations for screening MRI of the breast s in certain patient populations, to be used in conjunction with mammography. Breast MRI surveillanc e may be appropriate for women with more than 20% lifetime risk of developing breast cancer as deter mined by genetic testing, significant family history of the disease, or history of mantle radiation f or Hodgkins Disease. ACR Practice Guidelines 2008. TECHNICAL DOCUMENTATION: FINDING NUMBER: (1) ASSESSMENT: (1) JOB ID: [id number] [employer]- All Rights Reserved
== END ==
LOC: WI 08:33
PROVIDERS: ATTEND Physician Assistant
DX: Z12.31 Encounter for screening mammogram for malignant neoplasm of breast (principal)
CPT/HCPCS: 77067; G0202

== ENCOUNTER 2018-06-28 15:11 | Emergency (ER) | payer SELFPAY ==
[2018-06-28] MEDS ORDERED: NORMAL SALINE 1000 ML 1,000 ML IV ONE (16:13)
--- NOTE | 2018-06-28 16:14 | ER Document Report ---
ED Medical Screen (RME) - General Mode of Arrival: Ambulatory Information source: Patient TRAVEL OUTSIDE OF THE [place] IN LAST 30 DAYS: No <VIC SOMMER - Last Filed: 06/28/18 19:53> <CHARIS MANDUJANO - Last Filed: 06/28/18 20:59> - General Chief Complaint: Abdominal Pain Stated Complaint: ABDOMINAL PAIN Time Seen by Provider: 06/28/18 16:08 Notes: Patient is a 47-year-old female with pancreatitis presents to the emergency department complaining of right lower quadrant abdominal pain onset 1 week ago. Patient states describes the pain as a waxing and waning stabbing which worsened today. She also complains of some chills. Patient mentions having chronic vomiting and diarrhea due to her pancreatitis. GENERAL: Alert, interacts well. No acute distress. HEAD: Normocephalic, Atraumatic. NECK: Full range of motion. Supple. Trachea midline. LUNGS: Clear to auscultation bilaterally, no wheezes, rales, or rhonchi. No respiratory distress. HEART: Regular rate and rhythm. No murmurs, gallops, or rubs. ABDOMEN: Soft, mild diffuse tenderness to palpation, worse in the RLQ. Non- distended. Bowel sounds present in all 4 quadrants. EXTREMITIES: Moves all four extremities spontaneously. PSYCH: Normal affect, normal mood. I have greeted and performed a rapid initial assessment of this patient. A comprehensive ED assessment and evaluation of the patient, analysis of test results and completion of the medical decision making process will be conducted by additional ED providers. (VIC SOMMER) - Related Data Allergies/Adverse Reactions: Sulfa (Sulfonamide Antibiotics) Allergy (Intermediate, Verified 10/20/16 12:21) Anaphylaxis mushrooms Allergy (Mild, Uncoded 10/20/16 12:21) Hives Past Medical History - Social History Chew tobacco use (# tins/day): No Frequency of alcohol use: None Drug Abuse: None - Past Medical History Cardiac Medical History: Reports: Hx Hypercholesterolemia, Hx Hypertension Denies: Hx Coronary Artery Disease, Hx Heart Attack Pulmonary Medical History: Reports: Hx Bronchitis, Hx Pneumonia Denies: Hx Asthma, Hx COPD Neurological Medical History: Denies: Hx Cerebrovascular Accident, Hx Seizures Endocrine Medical History: Reports: Hx Diabetes Mellitus Type 2 Renal/ Medical History: Reports: Hx Ectopic , Hx Ovarian Cysts. Denies: Hx Peritoneal Dialysis GI Medical History: Reports: Hx Gastritis, Hx Irritable Bowel Musculoskeltal Medical History: Denies Hx Arthritis Past Surgical History: Reports: Hx Adenoidectomy, Hx Hysterectomy, Hx Myringotomy, Hx Tonsillectomy, Hx Tubal Ligation - Immunizations Immunizations up to date: Yes Hx Diphtheria, Pertussis, Tetanus Vaccination: Yes <VIC SOMMER - Last Filed: 06/28/18 19:53> - Vital signs Vitals: Temp Pulse Resp BP Pulse Ox 98.5 F 101 H 16 163/108 H 97 06/28/18 15:16 06/28/18 15:16 06/28/18 15:16 06/28/18 15:16 06/28/18 15:16 Course - Laboratory Result Diagrams: 06/28/18 16:20 06/28/18 16:20 <VIC SOMMER - Last Filed: 06/28/18 19:53> - Laboratory Result Diagrams: 06/28/18 16:20 06/28/18 16:20 <CHARIS MANDUJANO - Last Filed: 06/28/18 20:59> - Vital Signs Vital signs: Temp Pulse Resp BP Pulse Ox 98.1 F 81 17 135/97 H 96 06/28/18 20:02 06/28/18 20:02 06/28/18 20:02 06/28/18 20:02 06/28/18 20:02 - Laboratory Laboratory results interpreted by me: 06/28/18 06/28/18 06/28/18 16:20 16:20 16:20 WBC 12.8 H RBC 5.33 H Hgb 16.0 H Hct 48.4 H Creatinine 0.44 L Glucose 160 H Urine Glucose (UA) 150 H Doctor's Discharge <VIC SOMMER - Last Filed: 06/28/18 19:53> <CHARIS MANDUJANO - Last Filed: 06/28/18 20:59> - Discharge Clinical Impression: Chronic abdominal pain, Vomiting and diarrhea, Right lower quadrant abdominal pain Condition: Good Disposition: HOME, SELF-CARE Additional Instructions: You have been seen in the Emergency Department (ED) for abdominal pain. Your evaluation did not identify a clear cause of your symptoms but was generally reassuring. I would strongly recommend that you get a colonoscopy to definitively exclude inflammatory bowel disease. Please follow up with your doctor as soon as possible regarding today's emergent visit and the symptoms that are bothering you. Return to the ED if your abdominal pain worsens or fails to improve, you develop bloody vomiting, bloody diarrhea, you are unable to tolerate fluids due to vomiting, fever greater than 101, or other symptoms that concern you. Prescriptions: Hyoscyamine Sulfate [Levsin-Sl] 0.125 mg SL Q12HP PRN #[id number] tab.subl PRN Reason: Referrals: BONNY LEARY PA-C [Primary Care Provider] - Follow up as needed
[2018-06-28 16:40] LABS: ABSOLUTE BASOPHILS # (AUTO) 0.1 10^3/uL (0.0-0.2); ABSOLUTE EOSINOPHILS # (AUTO) 0.2 10^3/uL (0.0-0.6); ABSOLUTE LYMPHOCYTES (AUTO) 3.8 10^3/uL (0.5-4.7); ABSOLUTE MONOCYTES (AUTO) 0.7 10^3/uL (0.1-1.4); BASOPHILS % (AUTO) 0.7 % (0-2); EOSINOPHILS % (AUTO) 1.8 % (0-6); HEMATOCRIT 48.4 % (36.0-47.0); LYMPHOCYTES % (AUTO) 29.4 % (13-45); MEAN CORPUSCULAR HGB CONC 33.1 g/dL (32.0-36.0); MEAN CORPUSCULAR VOLUME 91 fl (80-97); MONOCYTES % (AUTO) 5.5 % (3-13); PLATELET COUNT 250 10^3/uL (150-450); RED BLOOD COUNT 5.33 10^6/uL (3.72-5.28); RED CELL DISTRIBUTION WIDTH 13.8 % (11.5-14.0); SEGMENTED NEUTROPHILS % (AUTO) 62.6 % (42-78); TOTAL CELLS COUNTED % (AUTO) 100 %; WHITE BLOOD COUNT 12.8 10^3/uL (4.0-10.5)
[2018-06-28 16:51] LABS: APPEARANCE,URINE CLEAR; BILIRUBIN,URINE NEGATIVE (NEGATIVE); COLOR,URINE YELLOW; GLUCOSE, URINE 150 mg/dL (NEGATIVE); KETONES,URINE NEGATIVE (NEGATIVE); LEUKOCYTE ESTERASE,URINE NEGATIVE (NEGATIVE); NITRITE,URINE NEGATIVE (NEGATIVE); PROTEIN,URINE NEGATIVE (NEGATIVE); URINE SPECIFIC GRAVITY 1.009; UROBILINOGEN,URINE NEGATIVE mg/dL (<2.0)
[2018-06-28 17:00] LABS: ALANINE AMINOTRANSFERASE 22 U/L (9-52); ALBUMIN 4.5 g/dL (3.5-5.0); ALKALINE PHOSPHATASE 68 U/L (38-126); ANION GAP 10 (5-19); ASPARTATE AMINO TRANSFERASE 15 U/L (14-36); BILIRUBIN,DIRECT 0.3 mg/dL (0.0-0.4); BILIRUBIN,TOTAL 0.5 mg/dL (0.2-1.3); BLOOD UREA NITROGEN 9 mg/dL (7-20); CALCIUM 10.1 mg/dL (8.4-10.2); CARBON DIOXIDE 27 mmol/L (22-30); CHLORIDE 102 mmol/L (98-107); GLUCOSE 160 mg/dL (75-110); LIPASE 135.2 U/L (23-300); POTASSIUM 4.9 mmol/L (3.6-5.0); SODIUM 138.9 mmol/L (137-145); TOTAL PROTEIN 7.5 g/dL (6.3-8.2)
--- NOTE | 2018-06-28 19:07 | RADIOLOGY REPORT (SQ) ---
EXAM DESCRIPTION: CT ABD/PELVIS WITH IV ONLY COMPLETED DATE/TIME: 06/28/2018 6:52 pm REASON FOR STUDY: RLQ pain, r/o appendicitis COMPARISON: 10/25/2016 TECHNIQUE: CT scan of the abdomen and pelvis performed using helical scanning technique with dynamic intravenous contrast injection. No oral contrast. Images reviewed with lung, soft tissue, and bone w indows. Reconstructed coronal and sagittal MPR images reviewed. Delayed images for evaluation of the urinary system also acquired. All images stored on PACS. All CT scanners at this facility use dose modulation, iterative reconstruction, and/or weight based d osing when appropriate to reduce radiation dose to as low as reasonably achievable (ALARA). [facility]: Dose Right [facility]: CareDose [facility]: Dose Right [facility]: Teradose 4D [facility]: Zigmo CONTRAST TYPE AND DOSE: contrast/concentration: Isovue 350.00 mg/ml; Total Contrast Delivered: 100.0 ml; Total Saline Delivered: 45.0 ml RENAL FUNCTION: GFR > 60. RADIATION DOSE: CT Rad equipment meets quality standard of care and radiation dose reduction techniq ues were employed. CTDIvol: NaN - NaN mGy. DLP: 0 mGy-cm.. LIMITATIONS: None. FINDINGS: LOWER CHEST: No significant findings. LIVER: Normal size. No enhancing masses. No dilated ducts. SPLEEN: Normal size. No focal lesions. PANCREAS: No masses identified. Scattered small calcifications. No adjacent inflammation or peripanc reatic fluid collections. Pancreatic duct not dilated. GALLBLADDER: No calcified stones. No inflammatory changes to suggest cholecystitis. ADRENAL GLANDS: Similar small right adrenal hypodense nodule. RIGHT KIDNEY AND URETER: No cysts identified. No solid masses identified. Tiny calcified stones. No hydronephrosis or hydroureter. LEFT KIDNEY AND URETER: No cysts identified. No solid masses identified. No calcified stones. No hydr onephrosis or hydroureter. AORTA AND VESSELS: No aneurysm. No dissection. Renal arteries, SMA, celiac without significant stenos is. RETROPERITONEUM: No bulky retroperitoneal adenopathy. BOWEL AND PERITONEAL CAVITY: No obstruction or inflammatory changes. No free fluid. APPENDIX: Normal. PELVIS: Prior hysterectomy. No free fluid. Unremarkable bladder. ABDOMINAL WALL: No masses. No hernias. BONES: No acute findings. OTHER: No other significant finding. IMPRESSION: NO ACUTE FINDINGS IN THE ABDOMEN OR PELVIS ON CT SCAN WITH IV CONTRAST. TECHNICAL DOCUMENTATION: JOB ID: [id number] Quality ID # [id number]: Final reports with documentation of one or more dose reduction techniques (e.g., Au tomated exposure control, adjustment of the mA and/or kV according to patient size, use of iterative reconstruction technique) 2010 [employer]- All Rights Reserved Reading location - IP/workstation name: [place]
[2018-06-28] MEDS ORDERED: HYOSCYAMINE SULFATE 0.125 MG TABLET PO ONE (19:32)
--- NOTE | 2018-06-28 19:37 | ER Document Report ---
ED General - General Chief Complaint: Abdominal Pain Stated Complaint: ABDOMINAL PAIN Time Seen by Provider: 06/28/18 16:08 Mode of Arrival: Ambulatory Notes: Patient is a 47-year-old female with a past medical history of chronic recurrent abdominal pain, "chronic pancreatitis" but she does not use insulin nor pancreatic enzymes, who presents with 1 week of intermittent right lower quadrant abdominal pain. She describes the pain as an intermittent, stabbing, severe pain that comes on abruptly without trigger and does resolve spontaneously. She has a history of abdominal pain similar to this in the past but never to the right lower quadrant which is what prompted her to come to the emergency department today. She denies fever or constitutional symptoms. She has had diarrhea and vomiting. She has not seen her general doctor regarding today's concerns. TRAVEL OUTSIDE OF THE [place] IN LAST 30 DAYS: No - Related Data Allergies/Adverse Reactions: Sulfa (Sulfonamide Antibiotics) Allergy (Intermediate, Verified 10/20/16 12:21) Anaphylaxis mushrooms Allergy (Mild, Uncoded 10/20/16 12:21) Hives Past Medical History - General Information source: Patient - Social History Smoking Status: Current Every Day Smoker Chew tobacco use (# tins/day): No Frequency of alcohol use: None Drug Abuse: None Lives with: Spouse/Significant other Family History: Reviewed & Not Pertinent, DM Patient has suicidal ideation: No Patient has homicidal ideation: No - Past Medical History Cardiac Medical History: Reports: Hx Hypercholesterolemia, Hx Hypertension Denies: Hx Coronary Artery Disease, Hx Heart Attack Pulmonary Medical History: Reports: Hx Bronchitis, Hx Pneumonia Denies: Hx Asthma, Hx COPD Neurological Medical History: Denies: Hx Cerebrovascular Accident, Hx Seizures Endocrine Medical History: Reports: Hx Diabetes Mellitus Type 2 Renal/ Medical History: Reports: Hx Ectopic , Hx Ovarian Cysts. Denies: Hx Peritoneal Dialysis GI Medical History: Reports: Hx Gastritis, Hx Irritable Bowel Musculoskeletal Medical History: Denies Hx Arthritis Past Surgical History: Reports: Hx Adenoidectomy, Hx Hysterectomy, Hx Myringotomy, Hx Tonsillectomy, Hx Tubal Ligation - Immunizations Immunizations up to date: Yes Hx Diphtheria, Pertussis, Tetanus Vaccination: Yes Hx Pneumococcal Vaccination: 09/18/00 Review of Systems - Review of Systems Notes: Constitutional: Negative for fever. HENT: Negative for sore throat. Eyes: Negative for visual changes. Cardiovascular: Negative for chest pain. Respiratory: Negative for shortness of breath. Gastrointestinal: Positive for abdominal pain, vomiting and diarrhea Genitourinary: Negative for dysuria. Musculoskeletal: Negative for back pain. Skin: Negative for rash. Neurological: Negative for headaches, weakness or numbness. 10 point ROS negative except as marked above and in HPI. Physical Exam - Vital signs Vitals: Temp Pulse Resp BP Pulse Ox 98.5 F 101 H 16 163/108 H 97 06/28/18 15:16 06/28/18 15:16 06/28/18 15:16 06/28/18 15:16 06/28/18 15:16 Interpretation: Tachycardic - Resolved at the time my assessment Notes: PHYSICAL EXAMINATION: GENERAL: Well-appearing, well-nourished and in no acute distress. HEAD: Atraumatic, normocephalic. EYES: Pupils equal round and reactive to light, extraocular movements intact, sclera anicteric, conjunctiva are normal. ENT: nares patent, oropharynx clear without exudates. Moist mucous membranes. NECK: Normal range of motion, supple without lymphadenopathy LUNGS: Breath sounds clear to auscultation bilaterally and equal. No wheezes rales or rhonchi. HEART: Regular rate and rhythm without murmurs ABDOMEN: Soft, nontender, normoactive bowel sounds. No guarding, no rebound. No masses appreciated. EXTREMITIES: Normal range of motion, no pitting or edema. No cyanosis. NEUROLOGICAL: No focal neurological deficits. Moves all extremities spontaneously and on command. PSYCH: Normal mood, normal affect. SKIN: Warm, Dry, normal turgor, no rashes or lesions noted. Course - Re-evaluation Re-evalutation: 06/28/18 19:34 Presentation of chronic, generalized, although more towards the right lower quadrant, intermittent abdominal pain. Abdominal exam is benign without any focal tenderness. Vitals are normal at the time of arrival. Laboratories are unremarkable without evidence of cystitis, or leukocytosis. Patient is status post salpingo-oophorectomy as well as hysterectomy removing pathologies from the differential. CT of the abdomen pelvis was obtained in triage, noted to be normal. Labs likewise completely unremarkable. I do not think the patient actually has chronic pancreatitis and explained this to her. I have emphasized that she needs to have a colonoscopy done to definitively exclude an inflammatory bowel condition such as Crohn's disease although her clinical presentation and recurrent nature of her symptoms appears to be most consistent with irritable bowel syndrome. At this time will discharge with return precautions and follow-up recommendations. Verbal discharge instructions given a the bedside and opportunity for questions given. Medication warnings reviewed. Patient is in agreement with this plan and has verbalized understanding of return precautions and the need for primary care follow-up in the next 24-72 hours. - Vital Signs Vital signs: Temp Pulse Resp BP Pulse Ox 98.5 F 101 H 16 163/108 H 97 06/28/18 15:16 06/28/18 15:16 06/28/18 15:16 06/28/18 15:16 06/28/18 15:16 - Laboratory Result Diagrams: 06/28/18 16:20 06/28/18 16:20 Laboratory results interpreted by me: 06/28/18 06/28/18 06/28/18 16:20 16:20 16:20 WBC 12.8 H RBC 5.33 H Hgb 16.0 H Hct 48.4 H Creatinine 0.44 L Glucose 160 H Urine Glucose (UA) 150 H - Diagnostic Test Radiology reviewed: Reports reviewed Discharge - Discharge Clinical Impression: Chronic abdominal pain, Vomiting and diarrhea, Right lower quadrant abdominal pain Condition: Good Disposition: HOME, SELF-CARE Additional Instructions: You have been seen in the Emergency Department (ED) for abdominal pain. Your evaluation did not identify a clear cause of your symptoms but was generally reassuring. I would strongly recommend that you get a colonoscopy to definitively exclude inflammatory bowel disease. Please follow up with your doctor as soon as possible regarding today's emergent visit and the symptoms that are bothering you. Return to the ED if your abdominal pain worsens or fails to improve, you develop bloody vomiting, bloody diarrhea, you are unable to tolerate fluids due to vomiting, fever greater than 101, or other symptoms that concern you. Prescriptions: Hyoscyamine Sulfate [Levsin-Sl] 0.125 mg SL Q12HP PRN #30 tab.subl PRN Reason: Referrals: BONNY LEARY PA-C [Primary Care Provider] - Follow up as needed
[2018-06-28 20:23] VITALS: BP 135/97
== END 2018-06-28 20:02 | disposition home or self-care (01) ==
LOC: ER 15:11
DX: R10.31 Right lower quadrant pain (principal); G89.29 Other chronic pain; R11.2 Nausea with vomiting, unspecified; R19.7 Diarrhea, unspecified; R00.0 Tachycardia, unspecified; F17.200 Nicotine dependence, unspecified, uncomplicated; I10 Essential (primary) hypertension
CPT/HCPCS: 99284; 96360; 96361; 36415; 83690; 85025; 80053; 81001; 74177; J3490; J7030

== ENCOUNTER 2019-01-26 13:47 | Emergency (ER) | payer SELFPAY ==
[2019-01-26] MEDS ORDERED: NORMAL SALINE 1000 ML 1,000 ML IV ONE (14:09)
[2019-01-26] MEDS ORDERED: HYDROMORPHONE HCL INJ/PF 2 MG/ML AMPULE IV ONE ×2 (14:10→17:51)
[2019-01-26] MEDS ORDERED: ONDANSETRON HCL INJ/PF 4 MG/2 ML SDV IV ONE (14:10)
--- NOTE | 2019-01-26 14:18 | ER Document Report ---
ED Medical Screen (RME) - General Chief Complaint: Abdominal Pain Stated Complaint: VOMITTING Time Seen by Provider: 01/26/19 14:09 Primary Care Provider: BONNY LEARY PA-C [Primary Care Provider] - Follow up as needed Mode of Arrival: Ambulatory Information source: Patient, Relative Notes: Patient is a 48-year-old female comes emergency room complaining of vomiting since . Patient states she started afternoon throwing up anything she ate or drank. Continuous vomiting throughout the next 12 hours and finally she went to sleep and woke up in the morning took a couple sips of water started vomiting again for the next 12 hours. She is been unable to hold anything down since that point in time. She is also had some diarrhea states that is not a new problem. Patient has a pertinent medical history which includes a history of pancreatitis which is idiopathic. Past surgical history includes a hysterectomy back in 2015. She still has her gallbladder and appendix. She also has a history of kidney stones and she has been having some hematuria as well. She is had some flank pain bilaterally as well. Patient is a smoker of one pack per day. History of hypertension and [id number] diabetes. TRAVEL OUTSIDE OF THE [place] IN LAST 30 DAYS: No - Related Data Allergies/Adverse Reactions: Sulfa (Sulfonamide Antibiotics) Allergy (Intermediate, Verified 01/26/19 13:48) Anaphylaxis mushrooms Allergy (Mild, Uncoded 01/26/19 13:48) Hives Past Medical History - General Information source: Patient, Relative - Social History Cigarette use (# per day): Yes - 1 pack a day Chew tobacco use (# tins/day): No Frequency of alcohol use: None Drug Abuse: None Lives with: Family Family history: Reviewed & Not Pertinent - Past Medical History Cardiac Medical History: Reports: Hx Hypercholesterolemia, Hx Hypertension Denies: Hx Coronary Artery Disease, Hx Heart Attack Pulmonary Medical History: Reports: Hx Bronchitis, Hx Pneumonia Denies: Hx Asthma, Hx COPD Neurological Medical History: Denies: Hx Cerebrovascular Accident, Hx Seizures Endocrine Medical History: Reports: Hx Diabetes Mellitus Type 2 Renal/ Medical History: Reports: Hx Ectopic , Hx Ovarian Cysts. Denies: Hx Peritoneal Dialysis GI Medical History: Reports: Hx Gastritis, Hx Irritable Bowel Musculoskeltal Medical History: Denies Hx Arthritis Past Surgical History: Reports: Hx Adenoidectomy, Hx Hysterectomy, Hx Myringotomy, Hx Tonsillectomy, Hx Tubal Ligation - Immunizations Immunizations up to date: Yes Hx Diphtheria, Pertussis, Tetanus Vaccination: Yes Review of Systems - Review of Systems Constitutional: No symptoms reported EENT: No symptoms reported Cardiovascular: No symptoms reported Respiratory: No symptoms reported Gastrointestinal: See HPI, Abdominal pain, Diarrhea, Nausea, Vomiting Genitourinary: See HPI, Dysuria, Flank pain, Hematuria Female Genitourinary: No symptoms reported Musculoskeletal: No symptoms reported Skin: No symptoms reported Hematologic/Lymphatic: No symptoms reported Neurological/Psychological: No symptoms reported -: Yes All other systems reviewed and negative Physical Exam - Vital signs Vitals: Temp Pulse Resp BP Pulse Ox 99.0 F 110 H 16 179/100 H 96 01/26/19 13:55 01/26/19 13:55 01/26/19 13:55 01/26/19 13:55 01/26/19 13:55 Interpretation: Hypertensive, Tachycardic - Notes Notes: PHYSICAL EXAMINATION: GENERAL: Patient is a well-nourished well-developed 48-year-old female who is in no apparent distress on physical exam today however she is in moderate pain and discomfort and is ill-appearing. HEAD: Atraumatic, normocephalic. ENT: Nares patent, oropharynx clear without exudates. dry mucous membranes NECK: Normal range of motion, supple without lymphadenopathy LUNGS: Auscultation patient's lung torres show she has bilateral breath sounds breath sounds decreased throughout with faint inspiratory wheeze noted no r honchi heard on auscultation. HEART: Tachycardic rate and rhythm without murmurs ABDOMEN: Examination patient's abdomen so she has bowel sounds in all 4 quads. She is very tender in the right upper quadrant area. Difficult to ascertain a Moreno sign the patient sitting up but I do believe she is got a positive Moreno sign. Patient also displays bilateral flank pain to percussion. Left greater than right. Female : deferred Musculoskeletal: Normal range of motion, no pitting or edema. No cyanosis. NEUROLOGICAL: Normal speech, normal gait. Normal sensory, motor exams PSYCH: Normal mood, normal affect. SKIN: Warm, Dry, normal turgor, no rashes or lesions noted. Course - Re-evaluation Re-evalutation: 01/26/19 14:17 Patient is presenting with multiple ways. Went with the abdominal ultrasound for gallbladder given that she was very tender in the right upper quadrant area. She may have 2 processes going on including a kidney stone versus a guard tract infection versus [place] however that will need to be determined after labs are obtained. - Vital Signs Vital signs: Temp Pulse Resp BP Pulse Ox 99.0 F 110 H 16 179/100 H 96 01/26/19 13:55 01/26/19 13:55 01/26/19 13:55 01/26/19 13:55 01/26/19 13:55 Doctor's Discharge - Discharge Referrals: BONNY LEARY PA-C [Primary Care Provider] - Follow up as needed
[2019-01-26 15:12] LABS: ABSOLUTE BASOPHILS # (AUTO) 0.1 10^3/uL (0.0-0.2); ABSOLUTE EOSINOPHILS # (AUTO) 0.1 10^3/uL (0.0-0.6); ABSOLUTE LYMPHOCYTES (AUTO) 2.4 10^3/uL (0.5-4.7); ABSOLUTE MONOCYTES (AUTO) 0.8 10^3/uL (0.1-1.4); ABSOLUTE NEUT (AUTO) 11.1 10^3/uL (1.7-8.2); BASOPHILS % (AUTO) 0.9 % (0-2); EOSINOPHILS % (AUTO) 0.8 % (0-6); HEMATOCRIT 48.1 % (36.0-47.0); HEMOGLOBIN 15.7 g/dL (12.0-15.5); LYMPHOCYTES % (AUTO) 16.4 % (13-45); MEAN CORPUSCULAR HEMOGLOBIN 29.8 pg (27.0-33.4); MEAN CORPUSCULAR HGB CONC 32.8 g/dL (32.0-36.0); MEAN CORPUSCULAR VOLUME 91 fl (80-97); MONOCYTES % (AUTO) 5.3 % (3-13); PLATELET COUNT 254 10^3/uL (150-450); RED BLOOD COUNT 5.29 10^6/uL (3.72-5.28); RED CELL DISTRIBUTION WIDTH 14.1 % (11.5-14.0); SEGMENTED NEUTROPHILS % (AUTO) 76.6 % (42-78); TOTAL CELLS COUNTED % (AUTO) 100 %; WHITE BLOOD COUNT 14.5 10^3/uL (4.0-10.5)
--- NOTE | 2019-01-26 15:13 | RADIOLOGY REPORT (SQ) ---
EXAM DESCRIPTION: U/S ABDOMEN LIMITED W/O DOP COMPLETED DATE/TIME: 01/26/2019 2:59 pm REASON FOR STUDY: right upper quad pain COMPARISON: None. TECHNIQUE: Dynamic and static grayscale images acquired of the abdomen and recorded on PACS. Yogio bella selected color Doppler and spectral images recorded. LIMITATIONS: None. FINDINGS: PANCREAS: No masses. Visualized pancreatic duct normal caliber. LIVER: No masses. Echotexture normal. LIVER VASCULATURE: Normal directional flow of the main portal vein and hepatic veins. GALLBLADDER: No stones. Normal wall thickness. No pericholecystic fluid. ULTRASOUND-DETECTED LEON'S SIGN: Negative. INTRAHEPATIC DUCTS AND COMMON DUCT: CBD and intrahepatic ducts normal caliber. No filling defects. INFERIOR VENA CAVA: Normal flow. AORTA: No aneurysm. RIGHT KIDNEY: Normal size. Normal echogenicity. No solid or suspicious masses. No hydronephrosis. No calcifications. PERITONEAL AND RIGHT PLEURAL SPACE: No ascites or effusions. OTHER: No other significant findings. IMPRESSION: NORMAL RIGHT UPPER QUADRANT ULTRASOUND. TECHNICAL DOCUMENTATION: JOB ID: [id number] [employer]- All Rights Reserved Reading location - IP/workstation name: [email or web address]
[2019-01-26] MEDS ORDERED: PROMETHAZINE HCL INJ 25 MG/1 ML VIAL IV ONE ×2 (15:26→17:51)
[2019-01-26 15:27] LABS: ALANINE AMINOTRANSFERASE 23 U/L (9-52); ALBUMIN 4.3 g/dL (3.5-5.0); ALKALINE PHOSPHATASE 67 U/L (38-126); ANION GAP 14 (5-19); ASPARTATE AMINO TRANSFERASE 15 U/L (14-36); BILIRUBIN,DIRECT 0.3 mg/dL (0.0-0.4); BILIRUBIN,TOTAL 0.5 mg/dL (0.2-1.3); BLOOD UREA NITROGEN 13 mg/dL (7-20); CALCIUM 10.1 mg/dL (8.4-10.2); CARBON DIOXIDE 26 mmol/L (22-30); CHLORIDE 98 mmol/L (98-107); GLUCOSE 321 mg/dL (75-110); LIPASE 64.7 U/L (23-300); POTASSIUM 4.6 mmol/L (3.6-5.0); SODIUM 138.3 mmol/L (137-145); TOTAL PROTEIN 7.2 g/dL (6.3-8.2)
[2019-01-26 15:35] LABS: APPEARANCE,URINE CLOUDY; BILIRUBIN,URINE NEGATIVE (NEGATIVE); COLOR,URINE YELLOW; GLUCOSE, URINE >=500 mg/dL (NEGATIVE); KETONES,URINE 80 mg/dL (NEGATIVE); LEUKOCYTE ESTERASE,URINE TRACE (NEGATIVE); NITRITE,URINE POSITIVE (NEGATIVE); PROTEIN,URINE 100 mg/dL (NEGATIVE); URINE SPECIFIC GRAVITY 1.023; UROBILINOGEN,URINE NEGATIVE mg/dL (<2.0)
[2019-01-26] MEDS ORDERED: RINGERS SOLUTION,LACTATED 1,000 ML IV ONE (15:42)
--- NOTE | 2019-01-26 16:07 | RADIOLOGY REPORT (SQ) ---
EXAM DESCRIPTION: CT ABD/PELVIS NO ORAL OR IV COMPLETED DATE/TIME: 01/26/2019 3:53 pm REASON FOR STUDY: RIGHT SIDE PAIN, HEMATURIA COMPARISON: CT abdomen pelvis 06/28/2018, 10/25/2016 TECHNIQUE: CT scan of the abdomen and pelvis performed without intravenous or oral contrast. Images reviewed with lung, soft tissue, and bone windows. Reconstructed coronal and sagittal MPR images revi ewed. All images stored on PACS. All CT scanners at this facility use dose modulation, iterative reconstruction, and/or weight based d osing when appropriate to reduce radiation dose to as low as reasonably achievable (ALARA). [facility]: Dose Right [facility]: CareDose [facility]: Dose Right [facility]: Teradose 4D [facility]: [employer] RADIATION DOSE: CT Rad equipment meets quality standard of care and radiation dose reduction techniq ues were employed. CTDIvol: 13.4 mGy. DLP: 785 mGy-cm.mGy. LIMITATIONS: None. FINDINGS: LOWER CHEST: No significant findings. No nodules or infiltrates. NON-CONTRASTED LIVER, SPLEEN, ADRENALS: Evaluation limited by lack of IV contrast. No identified sign ificant masses. 1 cm fatty right adrenal nodule likely an adenoma PANCREAS: No masses. No peripancreatic inflammatory changes. GALLBLADDER: No identified stones by CT criteria. No inflammatory changes to suggest cholecystitis. RIGHT KIDNEY AND URETER: No suspicious masses. Assessment limited by lack of IV contrast. Multiple tiny right-sided intrarenal nonobstructive renal calculi. No right ureteral stones. No hydronephro sis or hydroureter. LEFT KIDNEY AND URETER: No suspicious masses. Assessment limited by lack of IV contrast. Multiple t iny left-sided intrarenal nonobstructive kidney stones. No left ureteral stones. No hydronephrosis or hydroureter. AORTA AND RETROPERITONEUM: No aneurysm. No retroperitoneal masses or adenopathy. BOWEL AND PERITONEAL CAVITY: No obvious masses or inflammatory changes. No free fluid. APPENDIX: Normal. PELVIS, BLADDER, AND ABDOMINAL WALL:No abnormal masses. No free fluid. Bladder normal. Post hysterec flori. Fat containing umbilical hernia. BONES: No significant findings. OTHER: No other significant finding. IMPRESSION: Tiny bilateral intrarenal nonobstructive kidney stones. No ureteral stones. No hydrone phrosis or hydroureter COMMENT: Quality ID # [id number]: Final reports with documentation of one or more dose reduction techniques (e.g., Automated exposure control, adjustment of the mA and/or kV according to patient size, use of iterative reconstruction technique) TECHNICAL DOCUMENTATION: JOB ID: [id number] [employer]- All Rights Reserved Reading location - IP/workstation name: [email or web address]
[2019-01-26] MEDS ORDERED: PIPERACILLIN/TAZOBACTAM 3.375 GM VIAL IV ONE (16:14)
--- NOTE | 2019-01-26 16:35 | ER Document Report ---
ED General - General Chief Complaint: Abdominal Pain Stated Complaint: VOMITTING Time Seen by Provider: 01/26/19 14:09 Primary Care Provider: BONNIE JOHNSON FNP-C [Primary Care Provider] - Follow up in 3-5 days Mode of Arrival: Ambulatory Notes: Patient is a 48-year-old female that presents to the emergency department for chief complaint of vomiting and abdominal pain. Patient states that her symptoms started about 2 weeks ago, got progressively worse and much worse on , through today. She has had vomiting, hematuria and dysuria, she is had pain on her right side, in addition to her chronic pain on her left side. She states she has diarrhea but that is chronic and unchanged from her chronic pancreatitis. She currently rates her pain as a 6 out of 10 describes as a sharp pain, mainly on the right side, towards the lower abdomen. Denies any lightheadedness, dizziness, fevers, chills, night sweats, chest pain or shortness of breath. Past Medical History: Chronic pancreatitis, hypertension, diabetes mellitus, history of kidney stones Past Surgical History: Tubal ligation, hysterectomy Social History: Admits to smoking cigarettes daily, denies alcohol or drug use. Family History: Reviewed and noncontributory for presenting illness Allergies: Reviewed, see documented allergy list. REVIEW OF SYSTEMS: Other than noted above, the 12 point review of systems was reviewed with the patient and were negative, all pertinent findings are included in the HPI. PHYSICAL EXAMINATION: Vital signs reviewed, nursing noted reviewed. GENERAL: Patient appears uncomfortable on exam, but no acute distress. HEAD: Atraumatic, normocephalic. EYES: Eyes appear normal, extraocular movements intact, sclera anicteric, conjunctiva are normal. ENT: nares patent, oropharynx clear without exudates. Moist mucous membranes. NECK: Normal range of motion, supple without lymphadenopathy LUNGS: Breath sounds clear to auscultation bilaterally and equal. No wheezes rales or rhonchi. HEART: Regular rate and rhythm without murmurs ABDOMEN: Soft, there is right upper quadrant, and right flank tenderness with palpation on exam, normoactive bowel sounds. No rebound, guarding, or rigidity. No masses appreciated. EXTREMITIES: Nontender, good range of motion, no pitting or edema. NEUROLOGICAL: No focal neurological deficits. Moves all extremities spontaneously Motor and sensory grossly intact on exam. PSYCH: Normal mood, normal affect. SKIN: Warm, Dry, normal turgor, no rashes or lesions noted on exposed skin TRAVEL OUTSIDE OF THE [place] IN LAST 30 DAYS: No - Related Data Allergies/Adverse Reactions: Sulfa (Sulfonamide Antibiotics) Allergy (Intermediate, Verified 01/26/19 13:48) Anaphylaxis mushrooms Allergy (Mild, Uncoded 01/26/19 13:48) Hives Past Medical History - General Information source: Patient, Relative - Social History Smoking Status: Current Every Day Smoker Cigarette use (# per day): Yes - 1 pack a day Chew tobacco use (# tins/day): No Frequency of alcohol use: None Drug Abuse: None Lives with: Family Family History: Reviewed & Not Pertinent, DM Patient has suicidal ideation: No Patient has homicidal ideation: No - Past Medical History Cardiac Medical History: Reports: Hx Hypercholesterolemia, Hx Hypertension Denies: Hx Coronary Artery Disease, Hx Heart Attack Pulmonary Medical History: Reports: Hx Bronchitis, Hx Pneumonia Denies: Hx Asthma, Hx COPD Neurological Medical History: Denies: Hx Cerebrovascular Accident, Hx Seizures Endocrine Medical History: Reports: Hx Diabetes Mellitus Type 2 Renal/ Medical History: Reports: Hx Ectopic , Hx Ovarian Cysts. Denies: Hx Peritoneal Dialysis GI Medical History: Reports: Hx Gastritis, Hx Irritable Bowel Musculoskeletal Medical History: Denies Hx Arthritis Past Surgical History: Reports: Hx Adenoidectomy, Hx Hysterectomy, Hx Myringotomy, Hx Tonsillectomy, Hx Tubal Ligation - Immunizations Immunizations up to date: Yes Hx Diphtheria, Pertussis, Tetanus Vaccination: Yes Hx Pneumococcal Vaccination: 09/18/00 Physical Exam - Vital signs Vitals: Temp Pulse Resp BP Pulse Ox 99.0 F 110 H 16 179/100 H 96 01/26/19 13:55 01/26/19 13:55 01/26/19 13:55 01/26/19 13:55 01/26/19 13:55 Course - Re-evaluation Re-evalutation: Patient seen and examined vital signs reviewed. Laboratory data and/or imaging were ordered as appropriate for the patient's presenting symptoms and complaint, with consideration of any critical or life threatening conditions that may be associated with their obtained history and exam as noted above. Patient was treated with IV fluids, Zofran and IV pain medication Results were reviewed when available and demonstrated negative right upper quadrant ultrasound, she did have a leukocytosis, and nitrite positive urine, concerning for UTI, she does have a history of kidney stones and because of the flank pain, CT of the abdomen and pelvis without contrast was obtained, this was negative for obstructing stones. The patient was re-evaluated and was stable and much improved, patient's prior cultures were reviewed, she has grown a low count culture of 20,000 colony forming units, 2 years ago of ESBL E. coli, that happened to be sensitive to Augmentin, and sulfa, patient is allergic to sulfa, was also susceptible to piperacillin and tazobactam, patient was given a one-time dose of the Zosyn in the ED, and will be discharged home on Augmentin, for 9 days, patient was agreeable to this plan of care, and was discharged home. Evaluation was most consistent with pyelonephritis, leukocytosis Results were discussed with the patient at this point, after careful consideration I feel that that patient can be discharged from the emergency department, the patient was educated treatments and reasons to return to the emergency department based on their presumed diagnosis as noted above, they were advised to followup with a primary care physician in 2-3 days. Patient was agreeable to plan of care. *Note is created using voice recognition software and may contain spelling, syntax or grammatical errors. Laboratory 01/26/19 01/26/19 01/26/19 14:33 14:33 15:10 WBC 14.5 H RBC 5.29 H Hgb 15.7 H Hct 48.1 H MCV 91 MCH 29.8 MCHC 32.8 RDW 14.1 H Plt Count 254 Seg Neutrophils % 76.6 Lymphocytes % 16.4 Monocytes % 5.3 Eosinophils % 0.8 Basophils % 0.9 Absolute Neutrophils 11.1 H Absolute Lymphocytes 2.4 Absolute Monocytes 0.8 Absolute Eosinophils 0.1 Absolute Basophils 0.1 Sodium 138.3 Potassium 4.6 Chloride 98 Carbon Dioxide 26 Anion Gap 14 BUN 13 Creatinine 0.54 Est GFR ( Amer) > 60 Est GFR (Non-Af Amer) > 60 Glucose 321 H Calcium 10.1 Total Bilirubin 0.5 Direct Bilirubin 0.3 Neonat Total Bilirubin Not Reportable Neonat Direct Bilirubin Not Reportable Neonat Indirect Bili Not Reportable AST 15 ALT 23 Alkaline Phosphatase 67 Total Protein 7.2 Albumin 4.3 Lipase 64.7 Urine Color YELLOW Urine Appearance CLOUDY Urine pH 6.0 Ur Specific Jenkins 1.023 Urine Protein 100 H Urine Glucose (UA) >=500 H Urine Ketones 80 H Urine Blood LARGE H Urine Nitrite POSITIVE H Urine Bilirubin NEGATIVE Urine Urobilinogen NEGATIVE Ur Leukocyte Esterase TRACE H Urine WBC (Auto) 25 Urine RBC (Auto) >182 Urine Bacteria (Auto) TRACE Squamous Epi Cells Auto 2 Urine Mucus (Auto) OCC Urine Ascorbic Acid NEGATIVE Abdomen Ultrasound 01/26/19 14:11 IMPRESSION: NORMAL RIGHT UPPER QUADRANT ULTRASOUND. Abdomen/Pelvis CT 01/26/19 15:40 IMPRESSION: Tiny bilateral intrarenal nonobstructive kidney stones. No ureteral stones. No hydronephrosis or hydroureter - Vital Signs Vital signs: Temp Pulse Resp BP Pulse Ox 99.0 F 110 H 16 179/100 H 96 01/26/19 13:55 01/26/19 13:55 01/26/19 13:55 01/26/19 13:55 01/26/19 13:55 - Laboratory Result Diagrams: 01/26/19 14:33 01/26/19 14:33 Laboratory results interpreted by me: 01/26/19 01/26/19 01/26/19 14:33 14:33 15:10 WBC 14.5 H RBC 5.29 H Hgb 15.7 H Hct 48.1 H RDW 14.1 H Absolute Neutrophils 11.1 H Glucose 321 H Urine Protein 100 H Urine Glucose (UA) >=500 H Urine Ketones 80 H Urine Blood LARGE H Urine Nitrite POSITIVE H Ur Leukocyte Esterase TRACE H Discharge - Discharge Clinical Impression: Pyelonephritis Leukocytosis Qualifiers: Leukocytosis type: unspecified Qualified Code(s): D72.829 - Elevated white blood cell count, unspecified Condition: Stable Disposition: HOME, SELF-CARE Instructions: Pyelonephritis ([facility]) Additional Instructions: Please complete the entire course of antibiotics as prescribed, you should start taking the first dose tonight. Prescriptions: Amox Tr/Potassium Clavulanate [Augmentin 875-125 Tablet] 1 tab PO BID 9 Days #18 tablet Referrals: BONNIE JOHNSON FNP-C [Primary Care Provider] - Follow up in 3-5 days
[2019-01-26] MEDS ORDERED: PROMETHAZINE HCL INJ 25 MG/1 ML VIAL ONE (17:52)
[2019-01-26 18:04] VITALS: BP 194/89
== END 2019-01-26 18:26 | disposition home or self-care (01) ==
LOC: ER 13:47
DX: N12 Tubulo-interstitial nephritis, not specified as acute or chronic (principal); D72.829 Elevated white blood cell count, unspecified; R10.9 Unspecified abdominal pain; R11.10 Vomiting, unspecified; F17.210 Nicotine dependence, cigarettes, uncomplicated; I10 Essential (primary) hypertension
CPT/HCPCS: 99284; 96361; 96374; 36415; 87086; 83690; 85025; 87088; 80053; 81001; 87186; 76705; 74176; J1170; J2550; J2405; J7030; J7120; J2543

== ENCOUNTER 2019-02-21 13:21 | Emergency (ER) | payer SELFPAY ==
--- NOTE | 2019-02-21 14:11 | ER Document Report ---
ED Medical Screen (RME) - General Chief Complaint: Urinary Problem Stated Complaint: PAINFUL URINATION Time Seen by Provider: 02/21/19 14:04 Primary Care Provider: BONNIE JOHNSON FNP-C [Primary Care Provider] - Follow up as needed Mode of Arrival: Ambulatory Information source: Patient Notes: Patient is a 48-year-old female with past medical history of kidney stones presenting to the emergency department with blood in her urine, left flank pain, vaginal swelling. Patient reports history of PID, states this feels similar. Denies any fever or chills. Exam: Left CVA tenderness. I have greeted and performed a rapid initial assessment of this patient. A comprehensive ED assessment and evaluation of the patient, analysis of test results and completion of the medical decision making process will be conducted by additional ED providers. Dictation of this chart was performed using voice recognition software; therefore, there may be some unintended grammatical errors. TRAVEL OUTSIDE OF THE [place] IN LAST 30 DAYS: No - Related Data Allergies/Adverse Reactions: Sulfa (Sulfonamide Antibiotics) Allergy (Intermediate, Verified 02/21/19 13:26) Anaphylaxis mushrooms Allergy (Mild, Uncoded 02/21/19 13:26) Hives Past Medical History - Social History Family history: Reviewed & Not Pertinent - Past Medical History Cardiac Medical History: Reports: Hx Hypercholesterolemia, Hx Hypertension Denies: Hx Coronary Artery Disease, Hx Heart Attack Pulmonary Medical History: Reports: Hx Bronchitis, Hx Pneumonia Denies: Hx Asthma, Hx COPD Neurological Medical History: Denies: Hx Cerebrovascular Accident, Hx Seizures Endocrine Medical History: Reports: Hx Diabetes Mellitus Type 2 Renal/ Medical History: Reports: Hx Ectopic , Hx Ovarian Cysts. Denies: Hx Peritoneal Dialysis GI Medical History: Reports: Hx Gastritis, Hx Irritable Bowel Musculoskeltal Medical History: Denies Hx Arthritis Past Surgical History: Reports: Hx Adenoidectomy, Hx Hysterectomy, Hx Myringotomy, Hx Tonsillectomy, Hx Tubal Ligation - Immunizations Immunizations up to date: Yes Hx Diphtheria, Pertussis, Tetanus Vaccination: Yes Physical Exam - Vital signs Vitals: Temp Pulse Resp BP Pulse Ox 98.2 F 105 H 18 158/103 H 95 02/21/19 13:28 02/21/19 13:28 02/21/19 13:28 02/21/19 13:28 02/21/19 13:28 Course - Vital Signs Vital signs: Temp Pulse Resp BP Pulse Ox 98.2 F 105 H 18 158/103 H 95 02/21/19 13:28 02/21/19 13:28 02/21/19 13:28 02/21/19 13:28 02/21/19 13:28 Doctor's Discharge - Discharge Referrals: BONNIE JOHNSON, [employer]-C [Primary Care Provider] - Follow up as needed
[2019-02-21 14:50] LABS: APPEARANCE,URINE SLIGHTLY-CLOUDY; BILIRUBIN,URINE NEGATIVE (NEGATIVE); COLOR,URINE YELLOW; GLUCOSE, URINE >=500 mg/dL (NEGATIVE); KETONES,URINE NEGATIVE (NEGATIVE); LEUKOCYTE ESTERASE,URINE SMALL (NEGATIVE); NITRITE,URINE NEGATIVE (NEGATIVE); PROTEIN,URINE NEGATIVE (NEGATIVE); URINE SPECIFIC GRAVITY 1.018; UROBILINOGEN,URINE NEGATIVE mg/dL (<2.0)
[2019-02-21 14:52] LABS: ABSOLUTE BASOPHILS # (AUTO) 0.1 10^3/uL (0.0-0.2); ABSOLUTE EOSINOPHILS # (AUTO) 0.2 10^3/uL (0.0-0.6); ABSOLUTE LYMPHOCYTES (AUTO) 2.2 10^3/uL (0.5-4.7); ABSOLUTE MONOCYTES (AUTO) 0.5 10^3/uL (0.1-1.4); ABSOLUTE NEUT (AUTO) 7.3 10^3/uL (1.7-8.2); BASOPHILS % (AUTO) 1.1 % (0-2); EOSINOPHILS % (AUTO) 1.6 % (0-6); HEMATOCRIT 44.9 % (36.0-47.0); HEMOGLOBIN 15.1 g/dL (12.0-15.5); LYMPHOCYTES % (AUTO) 21.6 % (13-45); MEAN CORPUSCULAR HEMOGLOBIN 30.4 pg (27.0-33.4); MEAN CORPUSCULAR HGB CONC 33.6 g/dL (32.0-36.0); MEAN CORPUSCULAR VOLUME 90 fl (80-97); PLATELET COUNT 261 10^3/uL (150-450); RED BLOOD COUNT 4.97 10^6/uL (3.72-5.28); RED CELL DISTRIBUTION WIDTH 14.4 % (11.5-14.0); SEGMENTED NEUTROPHILS % (AUTO) 70.7 % (42-78); TOTAL CELLS COUNTED % (AUTO) 100 %; WHITE BLOOD COUNT 10.3 10^3/uL (4.0-10.5)
[2019-02-21 15:10] LABS: ALANINE AMINOTRANSFERASE 17 U/L (9-52); ALBUMIN 4.2 g/dL (3.5-5.0); ALKALINE PHOSPHATASE 66 U/L (38-126); ANION GAP 12 (5-19); ASPARTATE AMINO TRANSFERASE 14 U/L (14-36); BILIRUBIN,DIRECT 0.3 mg/dL (0.0-0.4); BILIRUBIN,TOTAL 0.5 mg/dL (0.2-1.3); BLOOD UREA NITROGEN 9 mg/dL (7-20); CALCIUM 10.1 mg/dL (8.4-10.2); CARBON DIOXIDE 28 mmol/L (22-30); CHLORIDE 100 mmol/L (98-107); GLUCOSE 315 mg/dL (75-110); POTASSIUM 5.1 mmol/L (3.6-5.0); SODIUM 140.1 mmol/L (137-145)
--- NOTE | 2019-02-21 18:25 | ER Document Report ---
ED General - General Chief Complaint: Urinary Problem Stated Complaint: PAINFUL URINATION Time Seen by Provider: 02/21/19 14:04 Primary Care Provider: BONNIE JOHNSON FNP-C [Primary Care Provider] - Follow up in 3-5 days Mode of Arrival: Ambulatory Information source: Patient Notes: This is a 48-year-old female with a history of hypertension, diabetes, pancreatitis, kidney stones, PID who presents to the emergency room with vaginal swelling, discharge, peeing blood, intermittent vomiting. Patient had a hysterectomy in 2015. She did have a history of pyelonephritis in January 26 and was treated with Augmentin (urine culture positive for Klebsiella sensitive to Augmentin). She states that she had some blood in the urine yesterday but none today. She does report intermittent explosive diarrhea for the past 2 years. There is been no diarrhea today. TRAVEL OUTSIDE OF THE [place] IN LAST 30 DAYS: No - HPI Onset: Last week Onset/Duration: Gradual Quality of pain: Dull Severity: Moderate Pain Level: 2 Associated symptoms: denies: Chest pain, Fever, Shortness of breath Exacerbated by: Denies Relieved by: Denies Similar symptoms previously: Yes Recently seen / treated by doctor: Yes - Related Data Allergies/Adverse Reactions: Sulfa (Sulfonamide Antibiotics) Allergy (Intermediate, Verified 02/21/19 13:26) Anaphylaxis mushrooms Allergy (Mild, Uncoded 02/21/19 13:26) Hives Past Medical History - General Information source: Patient - Social History Smoking Status: Unknown if Ever Smoked Cigarette use (# per day): No Chew tobacco use (# tins/day): No Smoking Education Provided: No Frequency of alcohol use: None Drug Abuse: None Lives with: Spouse/Significant other Family History: Reviewed & Not Pertinent, DM Patient has suicidal ideation: No Patient has homicidal ideation: No - Past Medical History Cardiac Medical History: Reports: Hx Hypercholesterolemia, Hx Hypertension Denies: Hx Coronary Artery Disease, Hx Heart Attack Pulmonary Medical History: Reports: Hx Bronchitis, Hx Pneumonia Denies: Hx Asthma, Hx COPD Neurological Medical History: Denies: Hx Cerebrovascular Accident, Hx Seizures Endocrine Medical History: Reports: Hx Diabetes Mellitus Type 2 Renal/ Medical History: Reports: Hx Ectopic , Hx Ovarian Cysts. Denies: Hx Peritoneal Dialysis GI Medical History: Reports: Hx Gastritis, Hx Irritable Bowel Musculoskeletal Medical History: Denies Hx Arthritis Past Surgical History: Reports: Hx Adenoidectomy, Hx Hysterectomy, Hx Myringotomy, Hx Tonsillectomy, Hx Tubal Ligation - Immunizations Immunizations up to date: Yes Hx Diphtheria, Pertussis, Tetanus Vaccination: Yes Hx Pneumococcal Vaccination: 09/18/00 Review of Systems - Review of Systems Constitutional: denies: Chills, Fever EENT: No symptoms reported Cardiovascular: No symptoms reported Respiratory: No symptoms reported Gastrointestinal: No symptoms reported Genitourinary: See HPI Female Genitourinary: See HPI Musculoskeletal: See HPI Skin: No symptoms reported Hematologic/Lymphatic: No symptoms reported Neurological/Psychological: No symptoms reported Physical Exam - Vital signs Vitals: Temp Pulse Resp BP Pulse Ox 98.2 F 105 H 18 158/103 H 95 02/21/19 13:28 02/21/19 13:28 02/21/19 13:28 02/21/19 13:28 02/21/19 13:28 Notes: Physical exam: GENERAL: She is alert and oriented x3, no acute distress HEAD: Atraumatic, normocephalic. EYES: Pupils equal round and reactive to light, extraocular movements intact, sclera anicteric, conjunctiva are normal. ENT: TMs normal, nares patent, oropharynx clear without exudates. Moist mucous membranes. NECK: Normal range of motion, supple without obvious mass or JVD. LUNGS: Breath sounds clear to auscultation bilaterally and equal. No wheezes rales or rhonchi. HEART: Regular rate and rhythm without murmurs, rubs or gallops. ABDOMEN: Soft, normoactive bowel sounds. No tenderness to palpation. No guarding, no rebound. No masses appreciated. Vaginal: External genitalia without lesions, irritation or swelling. Whitish discharge in vaginal vault. Status post hysterectomy. No mass lesions or significant tenderness palpable EXTREMITIES: Normal range of motion, no pitting or edema. No clubbing or cyanosis. NEUROLOGICAL: Cranial nerves II through XII grossly intact. Normal speech, moving all extremities. PSYCH: Normal mood, normal affect. SKIN: Warm, Dry, normal turgor, no rashes or lesions noted. Course - Re-evaluation Re-evalutation: 02/22/19 19:14 Reviewed microbiology: Yesterday's urine shows positive for gram-negative rods. I called the patient at home and left a message for her to call back so I can start an antibiotic (appears sensitive to cephalosporins, plan on giving Keflex). 02/22/19 20:03 Patient did call back: I have printed out a prescription for Keflex for 7 days and will leave it at the front desk lead (her pharmacy is closed and I was not unable to leave a message close). Patient will be coming to [facility] the medicine. - Vital Signs Vital signs: Temp Pulse Resp BP Pulse Ox 98.3 F 88 20 154/99 H 100 02/21/19 20:45 02/21/19 20:45 02/21/19 20:45 02/21/19 20:45 02/21/19 20:45 - Laboratory Result Diagrams: 02/21/19 14:30 02/21/19 14:30 Laboratory results interpreted by me: 02/21/19 02/21/19 02/21/19 14:30 14:30 14:30 RDW 14.4 H Potassium 5.1 H Glucose 315 H Urine Glucose (UA) >=500 H Ur Leukocyte Esterase SMALL H Discharge - Discharge Clinical Impression: Candidiasis, uti Condition: Stable Disposition: HOME, SELF-CARE Additional Instructions: As we discussed, your labs look good. The ultrasound showed no problems with the kidneys. The urine did have some white cells and we sent a urine culture. The STD check was negative. It did show that you had a yeast infection so we are treating you for a yeast infection. And we will wait for the urine culture which may take several days. Follow-up with your primary care doctor: Return to the ER for worsening pain. Take the Diflucan tablet in 1 week. Prescriptions: Cephalexin Monohydrate [Keflex 500 mg Capsule] 500 mg PO Q6H 7 Days #28 capsule Fluconazole [Diflucan] 150 mg PO ONCE PRN #1 tablet PRN Reason: Forms: Elevated Blood Pressure Referrals: BONNIE JOHNSON FNP-C [Primary Care Provider] - Follow up in 3-5 days
[2019-02-21 18:39] LABS: BACTERIA (WET MOUNT) 4+ BACTERIA SEEN; EPITHELIALS (WET MOUNT) 4+ EPITHELIALS SEEN; T.VAGINALIS (WET MOUNT) NO TRICHOMONAS SEEN; WBCS (WET MOUNT) 1+ WBCS SEEN; YEAST (WET MOUNT) YEAST SEEN
[2019-02-21 20:03] LABS: CHLAM PCR NOT DETECTED (NOT DETECT); GON PCR NOT DETECTED (NOT DETECT)
[2019-02-21 20:45] VITALS: BP 154/99
[2019-02-21] MEDS ORDERED: FLUCONAZOLE 100 MG TABLET PO ONE (21:03)
== END 2019-02-21 20:45 | disposition home or self-care (01) ==
LOC: ER 13:21
DX: B37.49 Other urogenital candidiasis (principal); R30.0 Dysuria; E78.00 Pure hypercholesterolemia, unspecified; I10 Essential (primary) hypertension; E11.9 Type 2 diabetes mellitus without complications; Z88.2 Allergy status to sulfonamides; Z90.710 Acquired absence of both cervix and uterus; Z87.442 Personal history of urinary calculi
CPT/HCPCS: 36415; 80053; 81001; 85025; 87086; 87088; 87186; 87210; 87491; 87591; 99283

== ENCOUNTER → 2019-03-04 | Outpatient (CLI) | payer SELFPAY ==
[2019-03-04 12:29] LABS: ABSOLUTE BASOPHILS # (AUTO) 0.1 10^3/uL (0.0-0.2); ABSOLUTE EOSINOPHILS # (AUTO) 0.2 10^3/uL (0.0-0.6); ABSOLUTE MONOCYTES (AUTO) 0.6 10^3/uL (0.1-1.4); ABSOLUTE NEUT (AUTO) 8.1 10^3/uL (1.7-8.2); BASOPHILS % (AUTO) 0.7 % (0-2); EOSINOPHILS % (AUTO) 1.6 % (0-6); HEMATOCRIT 43.9 % (36.0-47.0); HEMOGLOBIN 14.3 g/dL (12.0-15.5); LYMPHOCYTES % (AUTO) 25.2 % (13-45); MEAN CORPUSCULAR HEMOGLOBIN 29.4 pg (27.0-33.4); MEAN CORPUSCULAR HGB CONC 32.6 g/dL (32.0-36.0); MEAN CORPUSCULAR VOLUME 90 fl (80-97); PLATELET COUNT 255 10^3/uL (150-450); RED BLOOD COUNT 4.87 10^6/uL (3.72-5.28); RED CELL DISTRIBUTION WIDTH 13.9 % (11.5-14.0); SEGMENTED NEUTROPHILS % (AUTO) 67.5 % (42-78); TOTAL CELLS COUNTED % (AUTO) 100 %; WHITE BLOOD COUNT 12.1 10^3/uL (4.0-10.5)
[2019-03-04 12:58] LABS: ALANINE AMINOTRANSFERASE 14 U/L (9-52); ALBUMIN 4.1 g/dL (3.5-5.0); ALKALINE PHOSPHATASE 52 U/L (38-126); ANION GAP 9 (5-19); ASPARTATE AMINO TRANSFERASE 15 U/L (14-36); BILIRUBIN,DIRECT 0.3 mg/dL (0.0-0.4); BILIRUBIN,TOTAL 0.5 mg/dL (0.2-1.3); BLOOD UREA NITROGEN 12 mg/dL (7-20); CALCIUM 9.8 mg/dL (8.4-10.2); CARBON DIOXIDE 28 mmol/L (22-30); CHLORIDE 102 mmol/L (98-107); CHOLESTEROL 204.04 mg/dL (0-200); GLUCOSE 205 mg/dL (75-110); POTASSIUM 5.2 mmol/L (3.6-5.0); SODIUM 138.6 mmol/L (137-145); TOTAL PROTEIN 6.8 g/dL (6.3-8.2); TRIGLYCERIDES 194 mg/dL (<150)
[2019-03-04 13:09] LABS: DIRECT LDL 120 mg/dL (<100)
[2019-03-04 13:24] LABS: VLDL CHOLESTEROL 38.8 mg/dL (10-31)
== END ==
LOC: CCC 11:11
DX: Z00.00 Encounter for general adult medical examination without abnormal findings (principal)
CPT/HCPCS: 36415; 80053; 80061; 83036; 84443; 85025

== ENCOUNTER → 2019-04-03 | Outpatient (CLI) | payer OTHER ==
[2019-04-03 13:23] LABS: APPEARANCE,URINE CLOUDY; BILIRUBIN,URINE NEGATIVE (NEGATIVE); COLOR,URINE YELLOW; GLUCOSE, URINE 150 mg/dL (NEGATIVE); KETONES,URINE NEGATIVE (NEGATIVE); LEUKOCYTE ESTERASE,URINE LARGE (NEGATIVE); NITRITE,URINE NEGATIVE (NEGATIVE); PROTEIN,URINE NEGATIVE (NEGATIVE); URINE SPECIFIC GRAVITY 1.012; UROBILINOGEN,URINE NEGATIVE mg/dL (<2.0)
[2019-04-03 17:15] LABS: CHLAM PCR NOT DETECTED (NOT DETECT)
== END ==
LOC: CCC 11:42
DX: R39.15 Urgency of urination (principal)
CPT/HCPCS: 36415; 81001; 87086; 87088; 87186; 87491; 87591; 87798

== ENCOUNTER → 2019-05-10 | Outpatient (CLI) | payer OTHER ==
[2019-05-10 10:26] LABS: ALBUMIN 3.9 g/dL (3.5-5.0); ALKALINE PHOSPHATASE 51 U/L (38-126); ANION GAP 7 (5-19); ASPARTATE AMINO TRANSFERASE 14 U/L (14-36); BILIRUBIN,DIRECT 0.3 mg/dL (0.0-0.4); BILIRUBIN,TOTAL 0.3 mg/dL (0.2-1.3); BLOOD UREA NITROGEN 14 mg/dL (7-20); CALCIUM 9.5 mg/dL (8.4-10.2); CARBON DIOXIDE 27 mmol/L (22-30); CHLORIDE 105 mmol/L (98-107); CHOLESTEROL 223.15 mg/dL (0-200); GLUCOSE 110 mg/dL (75-110); POTASSIUM 4.3 mmol/L (3.6-5.0); TOTAL PROTEIN 6.4 g/dL (6.3-8.2); TRIGLYCERIDES 280 mg/dL (<150)
[2019-05-10 10:37] LABS: DIRECT LDL 157 mg/dL (<100)
== END ==
LOC: CCC 08:21
DX: Z00.00 Encounter for general adult medical examination without abnormal findings (principal)
CPT/HCPCS: 36415; 80053; 80061; 83036; 84443

== ENCOUNTER 2019-11-18 07:59 | Day surgery (SDC) | payer BC, OTHER ==
[~2019-11-18 07:59] MED LIST changes: -DIPHENHYDRAMINE HCL 50 MG/ML VIAL ONE; -EPINEPHRINE INJ 1 MG/10 ML DISP.SYRIN ONE; -FLUMAZENIL INJ 0.5 MG/5 ML VIAL IV ONE; -GLUCAGON,HUMAN RECOMB 1 MG INJ ONE; +LACTATED RINGERS 1000 ML IV PRN; +LIDOCAINE 0.5% INJ-PF (5 MG/ML) 50 ML SDV SUBCUT PRN; -MIDAZOLAM 2 MG/2 ML INJ ONE; -NALOXONE HCL INJ/PF 0.4 MG/1 ML SDV ONE; -ONDANSETRON HCL INJ/PF 4 MG/2 ML SDV ONE; -PROMETHAZINE HCL INJ 25 MG/1 ML VIAL ONE; +PROPOFOL INJ 200 MG/20 ML VIAL IV ONE
[2019-11-18] MEDS ORDERED: METOCLOPRAMIDE HCL INJ/PF 10 MG/2 ML SDV ONE (08:20)
[2019-11-18] MEDS ORDERED: FAMOTIDINE INJ/PF 20 MG/2 ML SDV IV ONE (08:21)
[2019-11-18 10:14] VITALS: BP 142/75
--- NOTE | 2019-11-18 12:03 | Operative Report ---
Operative Report DATE OF SURGERY: 11/18/19 Operative Report: The risk, benefits and alternatives of the procedure including the risk of bleeding, perforation requiring surgery have been explained to the patient in detail and informed consent has been obtained. Patient was taken back to the endoscopy suite and placed in a left, lateral decubital position. Timeout was called. Propofol medication is administered. Rectal examination is done which did not reveal any masses, tears or fissures. Olympus videoscope was introduced into the patient's rectum. Scope was then carefully advanced all the way to the cecum. Cecum was identified by the usual anatomical landmarks including the ileocecal valve as well as the appendiceal office. Prep was good. All of the segments are visualized. Retroflexion maneuvers performed. PREOPERATIVE DIAGNOSIS: Colorectal cancer screening POSTOPERATIVE DIAGNOSIS: Sessile cecal polypremoved via biopsy forceps. Diverticulosis without any evidence of diverticulitis. Internal hemorrhoids OPERATION: Colonoscopy with biopsy SURGEON: SERAFIN MORGAN ANESTHESIA: LMAC TISSUE REMOVED OR ALTERED: As noted above. COMPLICATIONS: None. ESTIMATED BLOOD LOSS: None. INTRAOPERATIVE FINDINGS: As noted above. PROCEDURE: Patient tolerated the procedure well. No immediate postprocedure complications are noted. Patient is discharged in good condition. Discharge date 11/18/2019. Discharge diet: Regular. Discharge activity: Regular. 2 to 3-week follow-up to discuss findings. Patient is instructed to call the office or proceed to the emergency room should there be any further problems or questions. 3 to 5-year surveillance colonoscopy.
== END 2019-11-18 10:13 | disposition home or self-care (01) ==
LOC: END 07:59
PROVIDERS: ATTEND Internal Medicine Gastroenterology
DX: Z12.11 Encounter for screening for malignant neoplasm of colon (principal); D12.0 Benign neoplasm of cecum; K57.30 Diverticulosis of large intestine without perforation or abscess without bleeding; K64.8 Other hemorrhoids; I10 Essential (primary) hypertension; E11.9 Type 2 diabetes mellitus without complications; F17.210 Nicotine dependence, cigarettes, uncomplicated; E78.5 Hyperlipidemia, unspecified; G89.4 Chronic pain syndrome; E11.65 Type 2 diabetes mellitus with hyperglycemia; Z79.4 Long term (current) use of insulin; Z91.19 Patient's noncompliance with other medical treatment and regimen
CPT/HCPCS: 45380; 82962; 88305 ×2; J2765; J2704; S0028